=== PATIENT | female | born 1965 | race American Indian/Alaskan Native ===

== ENCOUNTER 2025-05-16 13:44 | Outpatient (CLI) | payer BC, SELFPAY ==
--- OUTSIDE RECORDS SUMMARY | 2025-05-16 13:56 | XMS_ITS ---
Author Organization [facility] [place] ([address]) Address [address] [place] [address] Care Team Providers Care Rib Knitter Name Role Phone Elizabeth Burns Primary Care Provider Za Brewster Unavailable [phone] REASON FOR VISIT Asthma follow-up Encounters Encounter Location Date Provider Diagnosis [facility] [address] [place] [address] 04/06/2024 Za Farley Plan Of Treatment No Information Progress Notes * Tiara TELLEShDOB:[birth year] (59 yo F)Acc No.[id number]:04/06/2024 Asthma F/U Patient: Ashley LUIS Provider: Dominick Farley MD :1965 A ge:58 Y S ex:Female Date:04/06/2024 Address:[address] [facility] Pcp:Elizabeth Burns Subjective: * Chief Complaints: * 1 . Asthma follow-up. * Medical History: Objective: * Vitals: Assessment: Plan: * Treatment: * Billing Information: * Visit Code: * Procedure Codes: * Electronic signature of Krystyna Farley MD on 05/16/2025 at 01:56 PM CDT Sign off status: Pending * Provider: Dominick Farley MD Date: 0 04/06/2024 Generated for Venancio ruby/Shlomo/Rajanismitting on: 0 05/16/2025 01:56 PM CDT
--- OUTSIDE RECORDS SUMMARY | 2025-05-16 13:56 | XMS_ITS | Patient Health Record ---
Author Organization [facility] la[facility] [place] Address [address] [place] [address] Care Team Providers Care Slabbing Machine Operator Name Role Phone Elbert Ryan Primary Care Provider SHIVANI Mullen JR Unavailable [phone] Allergies Allergen (clinical drug ingredient) Drug/Non Drug Allergy documented on EMR Reaction Allergy Type Onset Date Status celecoxib CeleBREX Unknown Drug Allergy Active cyclobenzaprine Cyclobenzaprine HCl Unknown Drug Allergy Active gabapentin Gabapentin Unknown Drug Allergy Activ e methocarbamol Methocarbamol Unknown Drug Allergy Active naproxen Naproxen Unknown Drug Allergy Active tramadol Tramadol Unknown Drug Allergy Active Reason For Referral No Information Medications Medication SIG (Take, Route, Frequency, Duration) Notes Start Date End Date Status Omeprazole 40 MG 1 capsule 30 minutes before morning meal Orally Once a day Active Meloxicam 15 MG 1 tablet Orally Once a day Active Levothyroxine Sodium 88 MCG 1 tablet in the morning on an empty stomach Orally Once a day Active Vitamin A 2400 MCG (8000 UT) 1 capsule w ith food or milk Orally Once a day Active Vitamin D3 8913590 UNIT/GM as directed Active Vitamin C 500 MG as directed Orally Active DULoxetine HCl 60 MG 1 capsule Orally Tw ice a day Active oxyBUTYnin Chloride ER 5 MG 1 tablet Ora lly Once a day Active metFORMIN HCl 500 MG 1 tablet with a amado l Orally bid Active Social History Tobacco Use: Social History Observation Description Date Details (start date - stop date) Unknown Tobacco Use/Smoking Question Answer Notes Tobacco use: Uses tobacco in other forms Section Notes: soapp score 6 soapp score 6 soapp score 6 soapp score 6 Problems Problem Type SNOMED Code ICD Code Onset Dates Problem Status W/U Status Risk Notes Problem Solitary sacroiliitis (201020630) Sacroiliitis, not elsewhere classified (M46.1) Active confirmed Problem Lumbosacral spondylosis without myelopathy (26777214) Spondylosis without myelopathy or radiculopathy, lumbar region (M47.816) Active confirmed Problem Cervical spondylosis without myelopathy (884518976) Other spondylosis, cervical region (M47.892) Active confirmed Problem Lumbar radiculopathy (786218750) Radiculopathy, lumbar region (M54.16) Active confirmed Problem Enthesopathy of hip region (31651486) Trochanteric bursitis, unspecified hip (M70.60) Active confirmed Problem 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 (884856620) MCC (current) use of opiate analgesic (Z79.891) Active confirmed Plan Of Treatment No Information Insurance Providers Payer Name Payer Address Payer Phone Subscriber Number Group Number Insured Name Patient Relationship to Insured Coverage Start Date Coverage End Date PEEWEE Mcclain [address] [place] [address] [id number] Tiara Tidwellh Self - patient is the insured 2021 Medical (General) History Medical History History ICD Code Arthritis diabetes high cholesterol migraine headaches thyroid problems Surgical History Surgery Date(Month/Year) section hysterectomy 1996 laparoscopy right knee 2015 right knee feathered acl 2015 Hospitalization History Reason Date(Month/Year) none recent
--- OUTSIDE RECORDS SUMMARY | 2025-05-16 13:56 | XMS_ITS ---
Author Organization [facility] [place] ([address]) Address [address] [place] [address] Care Team Providers Care Community Pharmacist Name Role Phone Elizabeth Burns Primary Care Provider Za Brewster Unavailable [phone] REASON FOR VISIT Asthma follow-up Encounters Encounter Location Date Provider Diagnosis [facility] [address] [place] [address] 04/27/2024 Za Farley Plan Of Treatment No Information Progress Notes * Tiara TELLEShDOB:[birth year] (59 yo F)Acc No.[id number]:04/27/2024 Asthma F/U Patient: Ashley LUIS Provider: Dominick Farley MD :1965 A ge:58 Y S ex:Female Date:04/27/2024 Address:[address] [facility] Pcp:Elizabeth Burns Subjective: * Chief Complaints: * 1 . Asthma follow-up. * Medical History: Objective: * Vitals: Assessment: Plan: * Treatment: * Billing Information: * Visit Code: * Procedure Codes: * Electronic signature of Krytsyna Farley MD on 05/16/2025 at 01:56 PM CDT Sign off status: Pending * Provider: Dominick Farley MD Date: 0 04/27/2024 Generated for Venancio ruby/Shlomo/Rajanismitting on: 0 05/16/2025 01:56 PM CDT
--- OUTSIDE RECORDS SUMMARY | 2025-05-16 13:56 | XMS_ITS ---
Author Organization [facility] [place] ([address]) Address [address] [place] [address] Care Team Providers Care Housing Officer Name Role Phone Elizabeth Burns Primary Care Provider Unavaila araceli Cabaandrea Za Unavailable [phone] ZZ-Migration, Provider Unavailable Unavailab le Allergies Allergen (clinical drug ingredient) Drug/Non Drug Allergy documented on EMR Reaction Allergy Type Onset Date Status Steroids STEROIDS (uncoded) facial flushi ng and swelling Allergy Active aspirin Aspirin lip swelling Drug Allergy Acti ve oxycodone oxyCODONE migraines Drug Allergy Active REASON FOR VISIT [facility] Conversion Encounter Medications Medication SIG (Take, Route, [...] Active Encounters Encounter Location Date Provider Diagnosis [address] [address] 04/16/2024 Provider Brian Allergic rhinitis due to [...] * Tiara TELLEShDOB:[birth year] (59 yo F)Acc No.[id number]:04/16/2024 Patient: Ashley LUIS Provider: Janessa Tipton :1965 A ge:58 Y S ex:Female Date:04/16/2024 Address:[address] [place] [address], [id number] Pcp:Elizabeth Burns Subjective: * Chief Complaints: * [...] * Electronic signature of Lilliam JHAVERI-Migration on 05/16/2025 at 01:55 PM CDT Sign off status: Pending * Provider: Janessa rapp Migration Date: 04/16/2024 Generated for Venancio ruby/Shlomo/Adelita on: 05/16/2025 01:55 PM CDT
--- NOTE | 2025-05-16 15:03 | ECG_ITS ---
Test Date: 2025-05-16 15:16:28 Measurements Intervals [place] Rate: 76 P: 36 WA: 128 QRS: -19 QRSD: 120 T: -9 QT: 404 QTc: 455 Interpretive Statements SINUS RHYTHM RIGHT BUNDLE BRANCH BLOCK [120+ ms QRS DURATION, UPRIGHT V1, 40+ ms S IN I/aVL/V4/V5/V6] No previous ECG available for comparison Electronically Signed On 05-17-2025 12:33:28 CDT by Americo Daniels M.D.
[2025-05-16 15:33] LABS: Hematocrit 35.1 % (37.0-47.0); Hemoglobin 11.3 g/dL (12.0-15.0); Mean Corpuscular HGB Conc 32.2 g/dl (32-36); Mean Corpuscular Hemoglobin 28.0 pg (26-34); Mean Corpuscular Volume 86.9 fl (80-100); Platelet Count Result 213 k/mm3 (150-375); Red Blood Count 4.04 M/mm3 (4.2-5.4); White Blood Count 4.9 K/mm3 (4.5-10.0)
[2025-05-16 15:39] LABS: Add Urine Microscopic? YES; Appearance Urine Clear (Clear); Glucose Urine UA Negative (Negative); Leukocyte Esterase Ur Trace LEU/UL (Negative); Nitrate Urine Negative (Negative); Non Pathogenic Casts 0-2; Specific Grav Ur 1.012 (1.001-1.035)
[2025-05-16 15:44] LABS: INR 1.0; Prothrombin Time 13.0 Seconds (11.1-14.7)
[2025-05-16 15:45] LABS: Partial Thromboplastin Time 27.7 Seconds (22.3-36.8)
[2025-05-16 15:49] LABS: Hemoglobin A1C 6.0 % (<5.7)
[2025-05-16 15:56] LABS: Anion Gap 7 mmol/L (4-12); Blood Urea Nitrogen 11 mg/dL (7-17); Calcium 9.7 mg/dL (8.4-10.2); Carbon Dioxide 30 mmol/L (22-30); Chloride 104 mmol/L (98-107); Estimated Glomerular Filt Rate > 60; Glucose 100 mg/dL (65-110); Potassium 4.0 mmol/L (3.4-5.0); Sodium 141 mmol/L (137-145)
== END 2025-05-16 13:45 | disposition home or self-care (01) ==
LOC: ANHSURGERY 13:51
PROVIDERS: PCP Registered Nurse; Visit Provider Neurological Surgery
DX: Z01.818 Encounter for other preprocedural examination (principal); I45.10 Unspecified right bundle-branch block; M54.16 Radiculopathy, lumbar region; M43.16 Spondylolisthesis, lumbar region; E78.5 Hyperlipidemia, unspecified
CPT/HCPCS: 36415; 80048; 81001; 83036; 85027; 85610; 85730; 86850; 86870; 86880; 86900; 86901; 86902; 86905; 86971; 93005

== ENCOUNTER 2025-05-24 13:26 | Observation (INO) | payer BC, SELFPAY ==
[2025-05-16 14:31] VITALS: BP 135/84; PULSE 78; RESP 16; TEMP 36.6; O2SAT 98; BMI 36.3
--- NOTE | 2025-05-16 14:53 | PC.NURSE ---
Report to the Outpatient Waiting Room, entrance under the green pavilion located off [facility], at time _0900am on date ___05/23/25____. Planned Procedure Time: __1100am .? Time changes happen often and if your time is changed the preop area will call you the afternoon before. - You and your visitor will be asked to self-screen and do not enter if you have any COVID symptoms. Please call surgeon if you need to reschedule. - A mask is optional within the hospital at this time. Patients may have clear liquids (water, carbonated beverages, clear teas, apple juice) until 3 hours prior to surgery with a maximum of 20 ounces. - No food from midnight until time of surgery and no smoking, or chewing tobacco (or any form of nicotine). No chewing gum, candy or mints. (0800am) Take only the following medications with a SIP of water on the morning of surgery: ___Pregablin, Setraline, and Savella, Tylenol if needed DO NOT STOP ANY OF YOUR OTHER PRESCRIPTION MEDICATIONS PRIOR TO SURGERY EXCEPT THE FOLLOWING Hold all vitamins and supplements for 3 days per anesthesiologist.Date for last dose is 05/19/25 Medications to discontinue per physician HOLD NSAIDS/Meloxicam for [address] Vaughn Date to take last dose 05/16/25 Please no make-up, nail kyrgyz, hairspray, perfume, deodorant, or body powder the day of surgery.? No jewelry (including any body piercings) or valuables the day of surgery, leave them at home.? Please take a shower or bath the night before, or the morning of, surgery with an antibacterial soap.?( GOLD DIAL) Wear comfortable, loose fitting clothing.? Overnight bag, Robe, toiletries, Phone, phone conveyor line battery charger, Tennis shoes - Jewelry must be removed prior to entering the operating room.? Rings and piercings that are not removed may be cut off. - The hospital will not accept responsibility for valuables.? - Please leave all valuables, including medications, at home the day of surgery. If you are going home after surgery, a licensed driver guard must drive you home.? - NO public transportation without another adult if you receive anesthesia. - We recommend that an adult stay with you for 24 hours following discharge. - We also recommend that you do not drive, make important decision, drink alcoholic beverages, or take any drugs that were not prescribed by your health care provider for at least 24 hours after your discharge time. Follow any additional instructions given to you from your surgeon. Telephone instructions given to __Patient and asked if any additional questions and then verbalized understanding. Patient advised to call surgeon office or pre surgery nurse liaison [phone] if any additional questions.
[2025-05-23] VITALS (11 sets, daily range): BP systolic 106–144; BP diastolic 61–84; PULSE 70–90; RESP 12–20; TEMP 36.6–36.9; O2SAT 93–100
--- OUTSIDE RECORDS SUMMARY | 2025-05-23 00:30 | XMS_ITS | Encounter Summary ---
Author Organization [facility] Address [facility] [place] [address] Care Team Providers Care Scoop Operator Name Role Phone Elizabeth Burns [facility] Primary Care Provider [phone] Encounter Details Date Type Department Care Team (Late st Contact Info) Description 04/09/2025 Dynamic Signalt Message Enc [facility] [address] [place] [address] Elizabeth Burns [facility] [address] [place], [place] [id number] Pain med Social History Tobacco Use Types Packs/Day Years Used Date Smoking Tobacco: Some Days Electronic Cigarettes Smokeless Tobacco: Former Alcohol Use Standard Drinks/Week Comments Yes 0 (1 standard drink = 0.6 oz pur e alcohol) AUDIT-C Answer Date Recorded Frequency of Alcohol Consumption Monthly or less 05/24/2019 Average Number of Drinks Not on file 019 Frequency of Binge Drinking Not on file 05/03 PHQ-2 Answer Date Recorded Patient Health Questionnaire-2 Score 0 12/05/2024 Comments No Sex and Gender Information Value Date Recorded Sex Assigned at Female 12/05/2024 10:47 AM SOOT BLOWER Legal Sex Female 10:22 PM SOOT BLOWER Gender Identity Female 03/14/2025 3:45 PM CDT Sexual Orientation Not on file 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 of this encounter Plan of Treatment Upcoming Encounters Date Type Department Care Team (Late st Contact Info) Description 06/20/2025 3:20 PM CDT Allied Health/Nurse Visit [address] [place] [address] Elizabeth Burns FNP [address] [place] [address] 07/19/2025 10:40 AM CDT Office Visit [facility] [address] [phone] Alisia Rascon, CANDIS [address] [address] 07/21/2025 2:40 PM CDT Office Visit [address] [place] [address] Elizabeth Burns FNP [address] [facility] [place] [address] documented as of this encounter Visit Diagnoses Not on filedocumented in this encounter Care Teams Scoop Operator Relationship Specialty Start Date End Date Elizabeth Burns FNP [address] [place] [address] [place], [place] [id number] PCP - General NURSE PRACTITIONER 11/03/18 documented as of this encounter
--- OUTSIDE RECORDS SUMMARY | 2025-05-23 00:30 | XMS_ITS ---
Author Organization [facility] [place] ([address]) Address [address] [place] [address] Care Team Providers Care Paper Folding Machine Operator Name Role Phone Elizabeth Burns Primary Care Provider Unavaila araceli [place] Unavailable [phone] ZZ-Migration, Provider Unavailable Unavailab le Allergies Allergen (clinical drug ingredient) Drug/Non Drug Allergy documented on EMR Reaction Allergy Type Onset Date Status Steroids STEROIDS (uncoded) facial flushi ng and swelling Allergy Active aspirin Aspirin lip swelling Drug Allergy Acti ve oxycodone oxyCODONE migraines Drug Allergy Active REASON FOR VISIT [facility] Conversion Encounter Medications Medication SIG (Take, [...] Active Encounters Encounter Location Date Provider Diagnosis [address] [address] 04/16/2024 Provider Brian Allergic rhinitis due to [...] * Tiara TELLEShDOB:[birth year] (59 yo F)Acc No.[id number]:04/16/2024 Patient: Ashley LUIS Provider: Janessa Tipton :1965 A ge:58 Y S ex:Female Date:04/16/2024 Address:[address] [place] [address], [id number] Pcp:Elizabeth Burns Subjective: * Chief Complaints: * [...] * Electronic signature of Lilliam JHAVERI-Migration on 05/23/2025 at 12:30 AM CDT Sign off status: Pending * Provider: Janessa rapp Migration Date: 04/16/2024 Generated for Venancio ruby/Shlomo/Adelita on: 05/23/2025 12:30 AM CDT
--- OUTSIDE RECORDS SUMMARY | 2025-05-23 00:30 | XMS_ITS ---
Author Organization [facility] [place] ([address]) Address [address] [place] [address] Care Team Providers Care Regional Liaison Name Role Phone Elizabeth Burns Primary Care Provider Za Brewster Unavailable [phone] REASON FOR VISIT Asthma follow-up Encounters Encounter Location Date Provider Diagnosis [facility] [address] [place] [address] 04/27/2024 Za Farley Plan Of Treatment No Information Progress Notes * Tiara TELLEShDOB:[birth year] (59 yo F)Acc No.[id number]:04/27/2024 Asthma F/U Patient: Ashley LUIS Provider: Dominick Farley MD :1965 A ge:58 Y S ex:Female Date:04/27/2024 Address[address] [facility] Pcp:Elizabeth Burns Subjective: * Chief Complaints: * 1 . Asthma follow-up. * Medical History: Objective: * Vitals: Assessment: Plan: * Treatment: * Billing Information: * Visit Code: * Procedure Codes: * Electronic signature of Krystyna Farley MD on 05/23/2025 at 12:30 AM CDT Sign off status: Pending * Provider: Dominick Farley MD Date: 0 04/27/2024 Generated for Venancio ruby/Shlomo/Rajanismitting on: 0 05/23/2025 12:30 AM CDT
--- OUTSIDE RECORDS SUMMARY | 2025-05-23 00:30 | XMS_ITS | Patient Health Record ---
Author Organization [facility] Address [address] [place] [address] Care Team Providers Care Smt Technician Name Role Phone Elbert Ryan Primary Care Provider SHIVANI Mullen JR Unavailable Allergies Allergen (clinical drug ingredient) Drug/Non Drug [...] Orally Once a day Active Vitamin D3 9109484 UNIT/GM as directed Active Vitamin C 500 [...] W/U Status Risk Notes Problem Solitary sacroiliitis (785287344) Sacroiliitis, not elsewhere classified (M46.1) Active confirmed Problem Lumbosacral spondylosis without myelopathy (07177597) Spondylosis without myelopathy or radiculopathy, lumbar region (M47.816) Active confirmed Problem Cervical spondylosis without myelopathy (280589836) Other spondylosis, cervical region (M47.892) Active confirmed Problem Lumbar radiculopathy (169844467) Radiculopathy, lumbar region (M54.16) Active confirmed Problem Enthesopathy of hip region (82183137) Trochanteric bursitis, unspecified hip (M70.60) Active confirmed Problem 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 (337138520) retirement (current) use of opiate analgesic (Z79.891) Active confirmed Plan Of Treatment No Information Insurance Providers Payer Name Payer Address Payer Phone Subscriber Number Group Number Insured Name Patient Relationship to Insured Coverage Start Date Coverage End Date PEEWEE Mcclain [address] [place] [address] [id number] Tiara Tidwellh Self - patient is the insured 2021 Medical (General) History Medical History History ICD Code Arthritis diabetes high cholesterol migraine headaches thyroid problems Surgical History Surgery Date(Month/Year) section hysterectomy 1996 laparoscopy right knee 2015 right knee feathered acl 2015 Hospitalization History Reason Date(Month/Year) none recent
--- OUTSIDE RECORDS SUMMARY | 2025-05-23 00:30 | XMS_ITS | Encounter Summary ---
Author Organization [facility] Address [address] [place] [address] Care Team Providers Care Nodulizer Name Role Phone Elizabeth Burns [facility] Primary Care Provider [phone] Encounter Details Date Type Department Care Team (Latest Contact Info) Description 11/18/2024 [employer] Message [facility] [place] [id number] 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 of this encounter Plan of Treatment Upcoming Encounters Date Type Department Care Team (Late st Contact Info) Description 06/20/2025 3:20 PM CDT Allied Health/Nurse Visit [address] [place] [address] Elizabeth Burns FNP [address] [facility] [place] [address] 07/19/2025 10:40 AM CDT Office Visit [facility] [place] [address] [place] [phone] Alisia Rascon, CANDIS [address] [address] 07/21/2025 2:40 PM CDT Office Visit [address] [place] [address] Elizabeth Burns FNP [address] [facility] [place] [address] documented as of this encounter Visit Diagnoses Not on filedocumented in this encounter Additional Health Concerns Infection Onset Date Last Indicated Resolved Time COVID-19 Rule Out 12/05/2024 12/05/2024 12/05/2024 11:14 AM SOCK EXAMINER Influenza - Seasonal 12/05/2024 12/05/2024 025 12:32 AM SOCK EXAMINER documented as of this encounter Care Teams Nodulizer Relationship Specialty Start Date End Date Elizabeth Burns FNP [address] [facility] [place] [address] PCP - General NURSE PRACTITIONER 11/03/18 documented as of this encounter
--- OUTSIDE RECORDS SUMMARY | 2025-05-23 00:31 | XMS_ITS ---
Author Organization [facility] [place] ([address]) Address [address] [place] [address] Care Team Providers Care Brazing Machine Operator Name Role Phone Elizabeth Burns Primary Care Provider Za Brewster Unavailable [phone] REASON FOR VISIT Asthma follow-up Encounters Encounter Location Date Provider Diagnosis [facility] [address] [place] [address] 04/06/2024 Za Farley Plan Of Treatment No Information Progress Notes * Tiara TELLEShDOB:[birth year] (59 yo F)Acc No.[id number]:04/06/2024 Asthma F/U Patient: Ashley LUIS Provider: Dominick Farley MD :1965 A ge:58 Y S ex:Female Date:04/06/2024 Address:[address] [facility] Pcp:Elizabeth Burns Subjective: * Chief Complaints: * 1 . Asthma follow-up. * Medical History: Objective: * Vitals: Assessment: Plan: * Treatment: * Billing Information: * Visit Code: * Procedure Codes: * Electronic signature of Krystyna Farley MD on 05/23/2025 at 12:31 AM CDT Sign off status: Pending * Provider: Dominick Farley MD Date: 0 04/06/2024 Generated for Venancio ruby/Shlomo/Rajanismitting on: 0 05/23/2025 12:31 AM CDT
--- OUTSIDE RECORDS SUMMARY | 2025-05-23 00:31 | XMS_ITS | Patient Health Record ---
Author Organization [facility] [place] ([address]) Address [address] [place] [address] Care Team Providers Care Supervisor Net Making Name Role Phone Elizabeth Burns Primary Care Provider Za Brewster Unavailable [phone] Allergies Allergen (clinical drug ingredient) Drug/Non Drug Allergy documented on EMR Reaction Allergy Type Onset Date Status Steroids STEROIDS (uncoded) facial flushi ng and swelling Allergy Active aspirin Aspirin lip swelling Drug Allergy Acti ve oxycodone oxyCODONE migraines Drug Allergy Active Reason For Referral No Information Medications Medication SIG (Take, Route, Frequency, Duration) Notes Start Date End Date Status MELOXICAM 15 mg 1 tab(s) orally once a day Active Atorvastatin Calcium 20 MG 1 tab(s) orally once a day Active SUMAtriptan Succinate 50 MG 1 tab(s) orally once Active Omeprazole 40 MG 1 cap(s) orally once a day Active OXYBUTYNIN 5 mg 1 tab(s) orally 3 times a day Active Meloxicam 15 MG 1 tab(s) orally once a day Active MILNACIPRAN 25 MG 1 TAB(S) ORALLY 2 TIMES A DAY *Please review for potential replacement for e-prescription and drug interaction check* Active lamoTRIgine 25 MG 1 tab(s) orally 2 times a day Active Levothyroxine Sodium 137 MCG 1 tab(s) orally once a day Active oxyBUTYnin Chloride 5 MG 1 tab(s) orally 3 times a day Active LEVOCETIRIZINE DIHYDROCHLORIDE 5 mg 1 tab(s) orally once a day (in the evening); Duration: 30 days Active PROAIR HFA 90 MCG/INH 2 PUFF(S) INHALED EVERY 6 HOURS *Please review for potential replacement for e-prescription and drug interaction check* Active ARNUITY ELLIPTA furoate 100 mcg 1 puff(s) inhaled every 24 hours; Duration: 30 days Active AZELASTINE HYDROCHLORIDE NASAL 137 mcg/inh 2 spray(s) intranasally 2 times a day; Duration: 30 days Active LORATADINE 10 mg 1 tab(s) orally once a day Active Loratadine 10 MG 1 tab(s) orally once a day Active METFORMIN 500 mg 1 tab(s) orally 2 times a day Active LAMOTRIGINE 25 mg 1 tab(s) orally 2 times a day Active ATORVASTATIN 20 mg 1 tab(s) orally once a day Active LEVOTHYROXINE 137 mcg (0.137 mg) 1 tab(s) orally once a day Active OMEPRAZOLE 40 mg 1 cap(s) orally once a day Active SUMATRIPTAN 50 mg 1 tab(s) orally once Active Levocetirizine Dihydrochloride 5 MG 1 tab(s) orally once a day (in the evening); Duration: 30 days Active Azelastine HCl 137 MCG/SPRAY 2 spray(s) intranasally 2 times a day; Duration: 30 days Active Arnuity Ellipta 100 MCG/ACT 1 puff(s) inhaled every 24 hours; Duration: 30 days Active metFORMIN HCl 500 MG 1 tab(s) orally 2 times a day Active Social History Tobacco Use: Social History Observation Description Date Details (start date - stop date) Never Smoker NA - NA Smoking Smart Form: Question Answer Notes Are you a: never smoker Problems Problem Type SNOMED Code ICD Code Onset Dates Problem Status W/U Status Risk Notes Problem Chronic allergic conjunctivitis (57641493) Other chronic allergic conjunctivitis (H10.45) Active confirmed Problem Allergic rhinitis caused by pollen (disorder) (91121132) Allergic rhinitis due to pollen (J30.1) Active confirmed Problem Allergic rhinitis (70945849) Other allergic rhinitis (J30.89) Active confirmed Problem Chronic rhinitis (95092599) Chronic rhinitis (J31.0) Active confirmed Problem Allergic rhinitis caused by animal hair and dander (487869394346994) Allergic rhinitis due to animal (cat) (dog) hair and dander (J30.81) Active confirmed Plan Of Treatment No Information Insurance Providers Payer Name Payer Address Payer Phone Subscriber Number Group Number Insured Name Patient Relationship to Insured Coverage Start Date Coverage End Date [employer] [place] [address] [place] [address] [id number] Ashley Tidwell Self - patient is the insured Medical (General) History Medical History History ICD Code Fibromyalgia Anxiety Hyperthyroidism Neuropathy Surgical History Surgery Date(Month/Year) Endoscopy
--- OUTSIDE RECORDS SUMMARY | 2025-05-23 00:31 | XMS_ITS | Clinical Summary ---
Author Organization [facility] Address [facility] [place] [address] Care Team Providers Care Needle Punch Machine Operator Helper Name Role Phone Elizabeth Loya [facility] Primary Care Provider [phone] Allergies Active Allergy Reactions Criticality Noted Date Comments Aspirin Swelling 08/30/2019 Lips swelling Celecoxib Unknown 04/20/2025 Citrullus Vulgaris Hives 01/19/2018 Cyclobenzaprine Headache 04/20/2025 Gabapentin Dizziness 04/20/2025 Disoriented. Methocarbamol Unknown 04/20/2025 Methylprednisolone Swelling 01/06/2020 facial swelling and headache. Naproxen Rash Low 04/20/2025 Oxycodone Headache 01/08/2024 Pork-Derived Products Headache 08/30/2019 Worsens migraines Steroids Redness 01/08/2024 ORAL ONLY Strawberries Hives 01/19/2018 Sulfa Antibiotics Rash Low 01/19/2018 Tramadol Dizziness 04/20/2025 Disoriented. Medications ARNUITY ELLIPTA 100 MCG/ACT AEROSOL POWDER, BREATH ACTIVATED INHALE 1 PUFF BY MOUTH EVERY 24 HOURS Active azelastine (ASTELIN) 0.1 % nasal spray every 12 (twelve) hours. 11/25/19 24 Active omeprazole (PRILOSEC) 40 MG capsuleIndicatio ns:Dyspepsia Take 1 capsule (40 mg total) by mouth daily. 90 capsule 3 06/06/20 24 Active Ascorbic Acid 500 MG Cap as directed Orally Active Cholecalciferol (VITAMIN D3) [id number] UNIT/GM Liquid see administration instructions. Active triamcinolone (KENALOG) 0.5 % ointmentIndicati ons:Skin irritation Apply topically daily as needed. 15 g 01/18/20 25 Active pregabalin (LYRICA) 100 MG capsuleIndicatio ns:Small fiber neuropathy Take 1 capsule (100 mg total) by mouth 3 (three) times daily. 90 capsule 5 02/28/20 25 Active metFORMIN (GLUCOPHAGE) 500 MG tabletIndication s:Prediabetes Take 1 tablet (500 mg total) by mouth 2 (two) times daily with meals. 180 tablet 1 03/06/20 25 Active sertraline (ZOLOFT) 50 MG tabletIndication s:Treatment-resi stant depression Take 1 tablet (50 mg total) by mouth daily. 90 tablet 1 03/14/20 25 Active Milnacipran HCl (SAVELLA) 100 MG TabIndications:F ibromyalgia Take 1 tablet by mouth 2 (two) times daily. 180 tablet 1 03/16/20 25 Active meloxicam (MOBIC) 15 MG tabletIndication s:Multiple joint pain Take 1 tablet by mouth once daily 90 tablet 04/17/20 25 Active levothyroxine (SYNTHROID) 112 MCG tabletIndication s:Hypothyroidism , unspecified type Take 1 tablet (112 mcg total) by mouth every morning. 90 tablet 1 04/20/20 25 Active atorvastatin (LIPITOR) 20 MG tabletIndication s:Elevated lipoprotein(a) Take 1 tablet (20 mg total) by mouth nightly at bedtime. 90 tablet 1 04/20/20 25 Active levocetirizine (XYZAL) 5 MG tabletIndication s:Non-seasonal allergic rhinitis due to pollen Take 1 tablet (5 mg total) by mouth daily. 90 tablet 04/20/20 25 Active oxybutynin XL (DITROPAN-XL) 10 MG 24 hr tabletIndication s:OAB (overactive bladder) Take 1 tablet (10 mg total) by mouth daily. 90 tablet 1 04/20/20 25 Active SUMAtriptan (IMITREX) 50 MG tabletIndication s:Recurrent headache 1 tablet at headache onset, may repeat dose in 2 hours for persistent headache 30 tablet 5 04/20/20 25 Active albuterol sulfate HFA (PROAIR HFA) 108 (90 Base) MCG/ACT inhalerIndicatio ns:Uncomplicated asthma, unspecified asthma severity, unspecified whether persistent (HHS/HCC) Inhale 2 puffs into the lungs every 4 (four) hours as needed for Wheezing or Shortness of breath. 18 g 1 04/20/20 25 Active lubiprostone (AMITIZA) 24 MCG capsuleIndicatio ns:Irritable bowel syndrome with constipation Take 1 capsule (24 mcg total) by mouth 2 (two) times daily with meals. 60 capsule 3 05/17/20 25 025 Active Plecanatide (TRULANCE) 3 MG TabIndications:I rritable bowel syndrome with constipation Take 3 mg by mouth daily. 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 Esophageal dysphagia 10/15/2023 Class 2 severe obesity due t o excess calories with serious comorbidity and body mass index (BMI) of 37.0 to 37.9 in adult 02/04/2023 Engages in nicotine containing substance vaping 12/13/2019 Lumbar radiculopathy 05/24/2019 Controlled substance agreement signed 03/07/2019 Elevated lipoprotein(a) 03/07/2019 GERD (gastroesophageal reflux disease) 9 Vaginal dryness, menopausal 11/12/2018 Cervical herniated disc 01/19/2018 Generalized anxiety disorder 01/19/2018 Arthritis 01/19/2018 Atypical migraine 01/19/2018 Chronic back pain 01/19/2018 Fibromyalgia 01/19/2018 History of migraine headaches 01/19/2018 Overview (11/11/2018): Date Onset: 01/19/2018 Vitamin B12 deficiency 01/19/2018 Vitamin D deficiency 01/19/2018 Lichen sclerosus of female genitalia Resolved Problems Problem Noted Date Diagnosed Date Resolved Date Trochanteric bursitis of left hip 01/02/2020 10/03/2023 Hypothyroidism, unspecified type 11/12/2018 12/27/2018 Family history of lupus erythematosus 11/12/2018 03/07/2019 Obesity (BMI 30-39.9) 11/12/20182023 Cigarette nicotine dependence 01/19/2018 03/31/2024 Overview (11/11/2018): Date Onset: 01/19/2018 Encounters Date Type Department Care Team Description 05/17/2025 11:20 AM CDT Office Visit [facility] [address] [phone] Elizabeth Loya FNP Schaefer, Jennifer, NP Follow Up 05/17/2025 MyChart Message Enc [address] [place] [address] Elizabeth Loya FNP Surgery 05/17/2025 Travel 04/27/[address] [place] [phone] Elizabeth Loya FNP Mammography Order 04/27/2025 MyChart Message Enc [address] [place], [place] [phone] Elizabeth Loya FNP Need a referral 04/20/2025 10:00 AM CDT Office Visit [address] [place] [address] Elizabeth Loya FNP Follow Up (Patient is here for a 1 month follow up. /Wants to discuss some things. ) 04/20/2025 Scan [facility] SRV[facility] Scanned, Doc [facility] 04/20/2025 Travel 04/09/2025 MyChart Message Enc [address] [place] [phone] Elizabeth Loya FNP Pain med 03/24/[address] [place] [phone] Elizabeth Loya FNP Prior Authorization (PA request Trulance 30 mg tab) 03/19/2025 MyChart Message Enc [facility] [address] [place] [address] Elizabeth Loya FNP Medication 03/14/2025 3:40 PM CDT Office Visit [address] [place] [address] Elizabeth Loya FNP Medication Management (IBS acting up//Right ear pain//Joint pain//Needing some shots and med refills) 03/14/2025 Travel 03/14/2025 Results Follow-Up [address] [place] [address] Elizabeth Loya FNP THYROID STIM HORMONE TSH 03/13/2025 6:58 AM CDT - 03/13/2025 11:59 PM CDT Hospital Encounter [facility] [address] [place] [address] Elizabeth Loya FNP Discharge Disposition: Home or Self Care (Routine Discharge) 03/13/2025 Travel 03/06/2025 Scan [facility] INFO SRVCS Scanned, Doc [facility] 02/23/2025 3:39 PM CDT - 02/23/2025 11:59 PM CDT Hospital Encounter [facility] [id number] [place] [address] Fiona Ware, CANDIS Discharge Disposition: Home or Self Care (Routine Discharge) 02/23/2025 Travel from Last 3 Months Immunizations Immunization Administration Dates Next Due Fluzone (IIV3, Trivalent, 0. 5 ML Prefilled Syringe) 08/02/2024 Fluzone 6 Months+ Quad (0.5 mL Prefilled Syringe) 07/20/2023 Hepatitis B 01/03/1997,07/21/1996,06/22/1996 Influenza (Generic) 11/25/2017,10/08/2017 Influenza Adult (Generic) 09/28/2019 MMR (Generic) 06/13/2014 Shingrix 04/20/2025 Td (Tenivac) preservative free 12/23/1995 Tdap (Adacel) 03/14/2025 Tdap (Generic) 05/04/2014 Family History Medical History Relation Comments Arthritis Father Diabetes Father Heart Disease Father Heart Disease Mother Lupus Mother Breast Cancer Neg Hx Relation Status Comments Brother Alive Father Mother Social History Tobacco Use Types Packs/Day Years Used Date Smoking Tobacco: Some Days Electronic Cigarettes Smokeless Tobacco: Former Chew Tobacco Cessation:Ready to Q uit: Not Asked; Counseling Given: Not Answered Alcohol Use Standard Drinks/Week Comments Not Currently 0 (1 standard drink = 0.6 oz pur e alcohol) AUDIT-C Answer Date Recorded Frequency of Alcohol Consumption Monthly or less 05/24/2019 Average Number of Drinks Not on file 019 Frequency of Binge Drinking Not on file 05/03 PHQ-2 Answer Date Recorded Patient Health Questionnaire-2 Score 0 05/17/2025 Comments No Sex and Gender Information Value Date Recorded Sex Assigned at Female 12/05/2024 10:47 AM CAR DUMPER OPERATOR Legal Sex Female 10:22 PM CAR DUMPER OPERATOR Gender Identity Female 03/14/2025 3:45 PM CDT Sexual Orientation Not on file 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 Last Filed Vital Signs Vital Sign Reading Time Taken Comments Blood Pressure 131/88 05/17/2025 11:05 AM CDT Pulse 88 05/17/2025 11:05 AM CDT Temperature 36.6 C (97.8 F) 05/17/2025 11:05 AM CDT Respiratory Rate 20 05/17/2025 11:05 AM CDT Oxygen Saturation 98% 05/17/2025 11:05 AM CDT Inhaled Oxygen Concentration - - Weight 84.4 kg (186 lb) 05/17/2025 11:05 AM CDT Height 152.4 cm (5') 05/17/2025 11:05 AM CDT Body Mass Index 36.33 05/17/2025 11:05 AM CDT Plan of Treatment Upcoming Encounters Date Type Department Care Team (Late st Contact Info) Description 06/20/2025 3:20 PM CDT Allied Health/Nurse Visit [address] [place] [address] Elziabeth Loya [facility] [address] [place] [address] 07/19/2025 10:40 AM CDT Office Visit [facility] G[facility] [place] [address] [place] [phone] Alisia Rascon, CANDIS [address] [address] 07/21/2025 2:40 PM CDT Office Visit [facility] [address] [place] [phone] Elizabeth Loya [facility] [address] [facility] [place] [address] Health Maintenance Due Date Last Done Comments Annual Physical 1968 Pneumococcal Vaccine: 50+ Years (1 of 2 - PCV) 1983 COVID-19 Vaccine (1 - 2023-2 5 season) 2024 RSV Immunization or 60+ Years (1 - Risk 60-74 years 1-dose series) 2024 Zoster Vaccines (2 of 2) 06/15/2025 04/20/2025 Colorectal Cancer Screening FIT-DNA (3 Years) 04/02/2026 04/02/2023, 04/02/2023 Mammogram Screening 05/27/2026 05/27/2024, 03/29/2019 DTaP, Tdap and Td Vaccines ( 3 - Td or Tdap) 03/14/2035 03/14/2025, 05/04/2014, 12/23/1995 Hepatitis C Completed 01/18/2024 PHQ-2 (Physician [place]) Completed 05/17/2025 Meningococcal B Vaccine Aged Out No l onger eligible based on patient's age to complete this topic Meningococcal Vaccine Aged Out No melvin roxi eligible based on patient's age to complete this topic RSV Immunizations Under 20 Months Aged Out No longer eligible b ased on patient's age to complete this topic Procedures Procedure Name Priority Date/Time Associated Diagnosis Comments THYROID STIM HORMONE TSH Routine 03/13/2025 7:05 AM CDT Hypothyroidism XR LUMB SPINE+OBLS 5V Routine 02/23/2025 4:08 PM CDT Lumbar radiculopathy MG SCREENING W DENA GLENROY DIGI Routine 05/27/2024 3:03 PM CDT Screening mammogram for breast cancer HEPATITIS C ANTIBODY Routine 01/18/2024 3:30 PM CDT Neuropathy Fatigue Arthritis Myalgia Hypomagnesemia Iron deficiency anemia, unspecified Encounter for therapeutic drug monitoring Lupus ([facility]/HCC [facility]/HCC) Screening for viral disease RA (rheumatoid arthritis) Sjogren's syndrome COLOGUARD (EXACT SCIENCE) Routine 04/02/2023 11:31 AM CDT Screening for colon cancer from Last 3 Months or Most Recently Relevant to Health Maintenance Results * (ABNORMAL) THYROID STIM HORMONE TSH (03/13/2025 7:05 AM CDT) TSH 0.168(L) 0.358 - 3.74 uIU/ML 03/13/2025 10:33 AM CDT [facility] Comment: HIGH DOSES OF BIOTIN MAY INTERFERE WITH THIS TEST RESULT. CORRELATION TO CLINICAL HISTORY AND PRESENTATION RECOMMENDED. 03/13/2025 7:05 AM CDT us Elizabeth Loya FINANCIAL RESERVE CLERK LABORATORY Final Res ult [facility] [address] [place] [address], [place] [phone] * XR LUMB SPINE+OBLS 5V (02/23/2025 4:08 PM CDT) Anatomical Region Laterality Modality Spine Radiographic Char ging 02/24/2025 5:00 PM CDT Impressions 02/24/2025 5:06 PM CDT IMPRESSION: 1. No acute findings. Degenerative changes as above. 2. This film note made of moderately large amount of stool in colon. May be due to constipation. Referred By: Interpreted By: Mayur Crandall MD, 02/24/2025 5:00 PM Narrative 02/24/2025 5:06 PM CDT [facility] [address] [place] [address] IMAGING STUDIES: XR LUMB SPINE+OBLS 5V DATE: 02/23/2025 3:40 PM COMPARISON: Correlation with MRI lumbar spine of 02/09/2025 CLINICAL HISTORY: RADICULOPATHY. Chronic left-sided pain. No history of trauma. FINDINGS: No evidence of acute fracture or dislocation. Osteopenia limits exam. Vertebral body heights are well-maintained. Mild loss of disc space height at L4-5 and L5-S1. Grade 1 anterior spondylolisthesis of L4 on L5. Mild to moderate multilevel endplate and facet joint degenerative change.. No pars defect. No paraspinal lesions. On flexion and extension views there is no distinct movement. No change in the spondylolisthesis at L4 on L5 Procedure Note Mayur Crandall MD - 02/24/2025 [facility] [address] [place] [address] IMAGING STUDIES: XR LUMB SPINE+OBLS 5V DATE: 02/23/2025 3:40 PM COMPARISON: Correlation with MRI lumbar spine of 02/09/2025 CLINICAL HISTORY: RADICULOPATHY. Chronic left-sided pain. No historyof trauma. FINDINGS: No evidence of acute fracture or dislocation. Osteopenia limits exam. Vertebral body heights are well-maintained. Mild loss of disc spaceheight at L4- 5 and L5-S1. Grade 1 anterior spondylolisthesis of L4 on L5. Mild to moderatemultilevel endplate and facet joint degenerative change.. No pars defect. No paraspinal lesions. On flexion and extension views there is no distinct movement. No changein the spondylolisthesis at L4 on L5 IMPRESSION: 1. No acute findings. Degenerative changes as above. 2. This film note made of moderately large amount of stool in colon. Maybe due to constipation. Referred By: Interpreted By: Mayur Crandall MD, 02/24/2025 5:00 PM Fiona Ware ISOLATION WASHER GENERAL IMAGING Final Result * MG SCREENING W DENA GLENROY DIGI (05/27/2024 3:03 PM CDT) Anatomical Region Laterality Modality Breast Bilateral Mammography 06/10/2024 4:43 PM CDT Impressions 06/10/2024 4:48 PM CDT ===== IMPRESSION: ===== 1. Stable mammographic appearance with no new findings to suggest malignancy in either breast. Assessment: ACR BI-RADS 2 - BENIGN FINDING(S) Recommendation: 1:Routine Screening Bilateral Comments: Ordered By: ELIZABETH LOYA Interpreted By: Jerrell Crandall, 06/10/2024 4:43 PM Narrative 06/10/2024 4:48 PM CDT EXAMINATION: Digital bilateral screening mammogram with 3-D tomosynthesis EXAM DATE/TIME: 05/27/2024 2:25 PM REASON FOR EXAM: screening COMPARISON: 11/13/2020.. 03/29/2019 Technique: Digital screening mammography of both breasts was performed in addition to 3-D Tomosynthesis technique. This study was read with the assistance of a computer-aided detection system. Tissue density: The breast tissue is heterogeneously dense, which may obscure small masses. Findings: There is no new focal asymmetry, dominant mass lesion, area of skin thickening, or cluster of suspicious appearing calcifications in either breast to suggest malignancy. Elizabeth Loya FINANCIAL RESERVE CLERK MAMMO Final Res ult * HEPATITIS C ANTIBODY (01/18/2024 3:30 PM CDT) HEPATITIS C AB NON-REACTI VE NON-REACTI VE 01/18/2024 8:55 PM CDT [facility] 01/18/2024 3:30 PM CDT Liat Ramos MD LABORATORY Final Result [facility] [address] [place] [address], [place] [phone] * COLOGUARD (EXACT SCIENCE) (04/02/2023 11:31 AM CDT) COLOGUARD RESULT Negative Negative [employer] [facility] (CLIA #:[id number]) Comment: NEGATIVE TEST RESULT. A negative Cologuard result indicates a low likelihood that a colorectal cancer (CRC) or advanced adenoma (adenomatous polyps with more advanced pre-malignant features) is present. The chance that a person with a negative Cologuard test has a colorectal cancer is less than 1 in 1500 (negative predictive value >99.9%) or has an advanced adenoma is less than 5.3% (negative predictive value 94.7%). These data are based on a prospective cross-sectional study of 10,000 individuals at average risk for colorectal cancer who were screened with both Cologuard and colonoscopy. (Inez Conroy al, N Engl J Med 2014;370(14):4839-2070) The normal value (reference range) for this assay is negative. COLOGUARD RE-SCREENING RECOMMENDATION: Periodic colorectal cancer screening is an important part of preventive healthcare for asymptomatic individuals at average risk for colorectal cancer. Following a negative Cologuard result, the [place] Cancer Society and U.S. Multi-Society Task Force screening guidelines recommend a Cologuard re-screening interval of 3 years. References: [place] [employer] Society Guideline for Colorectal Cancer Screening: https://www.cancer.org/cancer/hhkex-ntdnmg-uaehlu/ashvrlchn-ahzuazuxx-zjjhxbu/ac s-rec ommendations.html.; Shahbaz DK, [place] CR, Gwyn TanK, Colorectal Cancer Screening: Recommendations for Physicians and Patients from the U.S. Multi-Society Task Force on Colorectal Cancer Screening , Am J Gastroenterology 2017; 112:9080-2784. TEST DESCRIPTION: Composite algorithmic analysis of stool DNA-biomarkers with hemoglobin immunoassay. Quantitative values of individual biomarkers are not reportable and are not associated with individual biomarker result reference ranges. Cologuard is intended for colorectal cancer screening of adults of either sex, 45 years or older, who are at average-risk for colorectal cancer (CRC). Cologuard has been approved for use by the U.S. FDA. The performance of Cologuard was established in a cross sectional study of average-risk adults aged 50-84. Cologuard performance in patients ages 45 to 49 years was estimated by sub-group analysis of near-age groups. Colonoscopies performed for a positive result may find as the most clinically significant lesion: colorectal cancer [4.0%], advanced adenoma (including sessile serrated polyps greater than or equal to 1cm diameter) [20%] or non- advanced adenoma [31%]; or no colorectal neoplasia [45%]. These estimates are derived from a prospective cross-sectional screening study of 10,000 individuals at average risk for colorectal cancer who were screened with both Cologuard and colonoscopy. (Inez Conroy al, N Engl J Med 2014;370(14):1691-4313.) Cologuard may produce a false negative or false positive result (no colorectal cancer or precancerous polyp present at colonoscopy follow up). A negative Cologuard test result does not guarantee the absence of CRC or advanced adenoma (pre-cancer). The current Cologuard screening interval is every 3 years. ([place] Cancer Society and U.S. Multi-Society Task Force). Cologuard performance data in a 10,000 patient pivotal study using colonoscopy as the reference method can be accessed at the following location: www.Sverve.Friends Around/results. Additional description of the Cologuard test process, warnings and precautions can be found at www.cycleWood Solutionsrd.com. STOOL STOOL SPECIMEN / Unknown 04/02/2023 11:31 AM CDT 04/04/2023 6:42 PM CDT Elizabeth DURAN BODY FLUIDS AND STOOLS OR DERABLES Final Result [facility]) [address] [place] [address], [facility] (CLIA #:[id number]) [address] [place] [address] from Last 3 Months or Most Recently Relevant to Health Maintenance Insurance Advance Directives Documents on File Type Date Recorded Patient Machine Sand Mixer Expl anation Legal Documents 09/29/2023 2:49 PM Care Teams Needle Punch Machine Operator Helper Relationship Specialty Start Date End Date Elizabeth Loya FNP [address] [place] [address] [place] [address] PCP - General NURSE PRACTITIONER 11/03/18
--- OUTSIDE RECORDS SUMMARY | 2025-05-23 00:31 | XMS_ITS | Encounter Summary ---
Author Organization [facility] Address [facility] [place] [address] Care Team Providers Care Sign Hanger Name Role Phone Elizabeth BurnsP Primary Care Provider [phone] Reason for Referral * Surgical (Routine) - Closed Specialty Diagnoses / Procedures Referred By Panchito hook Referred To Contact Procedures Case request operating room: INJECTION EPIDURAL TRANSFORAMINAL L5-S1 Suzanna Guerrero NP 3 [facility] [address] [place] [address] Phone: tel: [phone] fax: Referral ID Status Reason Start Date Expiration Date Visits Re quested Visits Authorized [id number] Closed 05/31/2019 07/01/2020 1 1 Encounter Details Date Type Department Care Team (Late st Contact Info) Description 05/31/2019 Prep for Procedure [facility] [place], [place] [phone] [id number] Suzanna Guerrero NP 3 [facility] [address] [place] [phone] (Work) Social History Tobacco Use Types Packs/Day Years Used Date Smoking Tobacco: Former Cigarettes 0.3 35 1 983 - 2018 Smokeless Tobacco: Former Alcohol Use Standard Drinks/Week Comments Yes 0 (1 standard drink = 0.6 oz pur e alcohol) social AUDIT-C Answer Date Recorded Frequency of Alcohol Consumption Monthly or less 05/24/2019 Average Number of Drinks Not on file 019 Frequency of Binge Drinking Not on file 05/03 Comments No Sex and Gender Information Value Date Recorded Sex Assigned at Female 12/05/2024 10:47 AM VIDEO CLERK Legal Sex Female 10:22 PM VIDEO CLERK Gender Identity Female 03/14/2025 3:45 PM CDT Sexual Orientation Not on file 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 of this encounter Plan of Treatment Upcoming Encounters Date Type Department Care Team (Late st Contact Info) Description 06/20/2025 3:20 PM CDT Allied Health/Nurse Visit [address] [place] [address] Elizabeth Burns [address] [place] [address] 07/19/2025 10:40 AM CDT Office Visit [facility] [address] [phone] Alisia Rascon NP [address] [address] 07/21/2025 2:40 PM CDT Office Visit [address] [place] [address] Elizabeth Burns [address] [place] [address] Scheduled Orders Name Type Priority Associated Diagnoses Order Schedule Case request operating room: INJECTION EPIDURAL TRANSFORAMINAL L5-S1 Case Request Routine Once for 1 Occurrences starting 05/31/2019 until 05/31/2019 documented as of this encounter Visit Diagnoses Not on filedocumented in this encounter Additional Health Concerns Infection Onset Date Last Indicated Resolved Time COVID-19 Rule Out 11/20/2022 11/20/2022 11/20/2022 10:34 AM VIDEO CLERK COVID-19 Rule Out 11/21/2022 11/21/2022 11/21/2022 12:44 PM VIDEO CLERK COVID-19 Rule Out 01/23/2023 01/23/2023 01/23/2023 1:50 PM CDT COVID-19 Rule Out 01/25/2023 01/25/2023 01/25/2023 11:12 AM CDT COVID-19 Rule Out 09/17/2023 09/17/2023 09/17/2023 11:08 AM VIDEO CLERK COVID-19 Rule Out 12/05/2024 12/05/2024 12/05/2024 11:14 AM VIDEO CLERK Influenza - Seasonal 12/05/2024 12/05/2024 025 12:32 AM VIDEO CLERK documented as of this encounter Care Teams Sign Hanger Relationship Specialty Start Date End Date Elizabeth [place] FNP [address] [place] [address] [place] [address] PCP - General NURSE PRACTITIONER 11/03/18 documented as of this encounter
--- OUTSIDE RECORDS SUMMARY | 2025-05-23 00:31 | XMS_ITS | Encounter Summary ---
Author Organization [facility] Address [facility] [place] [address] Care Team Providers Care Budget Report Clerk Name Role Phone Elizabeth Burns [facility] Primary Care Provider [phone] Encounter Details Date Type Department Care Team (Late st Contact Info) Description 01/20/[address] Message Enc [facility] [address] [place] [address] Elizabeth Burns [facility] [address] [place], [place] [id number] Blood test Social History Tobacco Use Types Packs/Day Years Used Date Smoking Tobacco: Some Days Cigarettes 0.5 1 Started: 2016; L ast attempted to quit: 2018 Electronic Cigarettes Smokeless Tobacco: Former Alcohol Use Standard Drinks/Week Comments Yes 0 (1 standard drink = 0.6 oz pur e alcohol) AUDIT-C Answer Date Recorded Frequency of Alcohol Consumption Monthly or less 05/24/2019 Average Number of Drinks Not on file 019 Frequency of Binge Drinking Not on file 05/03 PHQ-2 Answer Date Recorded Patient Health Questionnaire-2 Score 0 01/08/2024 Comments No Sex and Gender Information Value Date Recorded Sex Assigned at Female 12/05/2024 10:47 AM SCREENING NURSE Legal Sex Female 10:22 PM SCREENING NURSE Gender Identity Female 03/14/2025 3:45 PM CDT Sexual Orientation Not on file 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 of this encounter Plan of Treatment Upcoming Encounters Date Type Department Care Team (Late st Contact Info) Description 06/20/2025 3:20 PM CDT Allied Health/Nurse Visit [facility] [address] [place] [address] Elizabeth Burns FNP [address] [place] [address] 07/19/2025 10:40 AM CDT Office Visit [facility] [address] [phone] Alisia Rascon, CANDIS [address] [facility] [address] [place] [id number] 07/21/2025 2:40 PM CDT Office Visit [facility] [address] [facility] [place] [address] Elizabeth Burns FNP [address] [place] [place] [address] documented as of this encounter Visit Diagnoses Not on filedocumented in this encounter Additional Health Concerns Infection Onset Date Last Indicated Resolved Time COVID-19 Rule Out 12/05/2024 12/05/2024 12/05/2024 11:14 AM SCREENING NURSE Influenza - Seasonal 12/05/2024 12/05/2024 025 12:32 AM SCREENING NURSE documented as of this encounter Care Teams Budget Report Clerk Relationship Specialty Start Date End Date Elizabeth Burns FNP [address] [facility] [address] [place] [address] PCP - General NURSE PRACTITIONER 11/03/18 documented as of this encounter
[2025-05-23] MEDS: LACTATED RINGERS 1,000 ML 30 ML IV CONT ×2 (10:00→16:14)
[2025-05-23] MEDS: MORPHINE SULFATE INJ (*CRX) 10 MG/ML AMP 2 MG IV PUSH ×2 (10:05→12:45)
--- NOTE | 2025-05-23 13:14 | WPDANESEPPF ---
Anes - Initial Pre Proc Eval Procedure: Operation Date: 05/23/25 11:00 Proposed Procedures p L4-5 Posterior Lumbar Interbody Fusion - Juan Vaughn MD Date/Time: 05/23/25 13:14 Surgeon: Juan Vaughn MD Pre Op Diagnosis: L4-5 spondyolithesis Patient Data Age: 59 Gender: F Height: 1.52 m Weight: 84.6 kg Last Vital Signs Temp 98.4 F 05/23/25 10:00 Pulse 70 05/23/25 10:00 Resp 16 05/23/25 10:00 BP 133/74 05/23/25 10:00 Pulse Ox 100 05/23/25 10:00 O2 Del Method Room Air 05/23/25 10:00 Allergies Allergy/AdvReac Type Severity Reaction Status Date / Time oxycodone Allergy Headache Verified 05/23/25 09:58 Pork/Porcine Containing Allergy Headache Verified 05/23/25 09:58 Products strawberry Allergy Headache Verified 05/23/25 09:58 methylprednisolone AdvReac Swelling Verified 05/23/25 09:58 Sulfa (Sulfonamide AdvReac Hives Verified 05/23/25 09:58 Antibiotics) vinyl AdvReac Severe rash Uncoded 05/23/25 09:58 bandaids AdvReac Intermediate rash Uncoded 05/23/25 09:58 Home Medications ?Medication ?Instructions ?Recorded ?Confirmed ?Type meloxicam 15 mg tablet 15 mg PO DAILY 11/16/24 05/23/25 History metformin 500 mg tablet 500 mg PO BID 11/16/24 05/23/25 History omeprazole 40 mg capsule,delayed 40 mg PO DAILY 11/16/24 05/23/25 History release oxybutynin chloride 5 mg tablet 5 mg PO DAILY 11/16/24 05/23/25 History pregabalin 50 mg capsule 50 mg PO BID 11/16/24 05/23/25 History sertraline 25 mg tablet 25 mg PO DAILY 11/16/24 05/23/25 History atorvastatin 20 mg tablet (Lipitor) 20 mg PO DAILY 04/18/25 05/23/25 History levocetirizine 5 mg tablet 5 mg PO QPM 04/18/25 05/16/25 History milnacipran 100 mg tablet (Savella) 100 mg PO BID 04/18/25 05/23/25 History plecanatide 3 mg tablet (Trulance) 3 mg PO DAILY 04/18/25 05/23/25 History albuterol sulfate 90 mcg/actuation 2 puff inhalation Q4-6H PRN 05/16/25 05/16/25 History aerosol inhaler bronchospasm calcium no.26 167 mg-magnesium 1 cap PO DAILY 05/16/25 05/16/25 History no.15 83 mg-zinc 5 mg capsule (Zpgrtfc-Cxbjtwhco-Huel Complex) cholecalciferol (vitamin D3) 25 25 mcg PO DAILY 05/16/25 05/16/25 History mcg (1,000 unit) capsule levothyroxine 112 mcg tablet 112 mcg PO .EVENING 05/16/25 05/23/25 History thiamine 7 mg-vit B2 5 mg-niacin 4 1 tablet PO DAILY 05/16/25 05/16/25 History mg-B12 25 mcg-papain 10 mg tablet (B-Complex Plus B-12) turmeric 400 mg capsule 400 mg PO DAILY 05/16/25 05/16/25 History vitamin A 2,500 unit-vit C 100 1 cap PO DAILY 05/16/25 05/16/25 History mg-biotin 2,500 njp-upqr-kjiohq capsule (Hccw-Jfci-Hlhm (vit A,E-yywxov-Xb-Cu)) vitamin K2 90 mcg capsule 90 mcg PO DAILY 05/16/25 05/16/25 History Laboratory Tests 05/23/25 09:36 POC Capillary Glucose 88 mg/dl (65-105) Patient hx anesthesia problems: none Family hx anesthesia problems: none Results Review: All pre-operative results and documents have been reviewed as part of the pre-operative evaluation. [facility] Past Medical History Medical History Thyroid disorder Osteoporosis IBS (irritable bowel syndrome) Head ache GERD (gastroesophageal reflux disease) Diabetes Arthritis Anxiety Anemia Allergies Family History Family History Father Alcoholism Diabetes mellitus Cerebrovascular accident Heart disease Mother Asthma Diabetes mellitus Depression Anxiety Thyroid disorder Sibling Alcoholism Depression Anxiety Thyroid disorder Unknown Asthma Thyroid disorder Depression Anxiety Social History Social History Smoking packs per day: 1 Smoking cigarettes per day: 20.0 Years smoked: 25 Smoking pack-years: 25.00 Smoking status: Former smoker Tobacco type: cigarettes and e-cigarettes/vaping Smoking end date: 11/02/20 Additional smoking assessment comments: Stopped Vaping/esig yesterday Alcohol intake: never Substance use: current Substance use type: marijuana Other substance usage details: Gummies nightly to help sleep 2-3 times week Living arrangements: with family Additional living arrangements comments: Mom Spiritual care concerns: No Anes - Eval Final PreProcedure Day of Procedure 05/23/25 13:14 Patient weight: obese Lungs: normal air movement Airway: Mallampati scale class II Neurological: alert and oriented Last oral intake: >/= 8 hours ASA classification: III Emergent: no Anesthetic plan: proceed Anesthesia type and monitoring: general ETT and standard monitoring Results Review: All pre-operative results and documents have been reviewed as part of the pre-operative evaluation. Hyperlipidemia, BMI 36, ex smoker, now vapes, DM w fsbs 88. Informed Consent: The patient's anesthetic plan and its attendant risks and benefits were discussed with the patient/family/POA. Questions were solicited and answers provided to the satisfaction of the patient/family/POA.
--- NOTE | 2025-05-23 13:22 | PM.IMHP ---
H&P: HPI History of Present Illness Date/Time: 05/23/25 13:22 Chief Complaint: back and leg pain Narrative: Ashley is a 59-year-old female with a longstanding progressive issue with low back pain extending into her left lower extremity mainly. This discomfort is somewhat claudicatory. She has been dealing with that for 20 or more years in various ways. The discomfort extends down the left back and lateral hip and down the lateral thigh stopping at about the knee. There is numbness in the same distribution as the pain. She denies specific muscle group weakness. She does not remember specific inciting event. Over the years she has undergone multiple rounds of physical therapy and participated in pain management with injections which have not been permanently helpful. She does not report any bowel or bladder difficulty or other constitutional problems. The pain is severe and limiting for her on a daily basis makes difficult for her to walk significant distances. It is somewhat better if she sits but really in any prolonged posture activity probably case her pain. She must change her activity and position frequently. Review of Systems Review of Systems: All systems reviewed & are unremarkable except as noted in HPI and below Denies chills, Denies fever, Denies weight gain and Denies weight loss Eyes Denies change in vision and Denies diplopia ENT Denies disequilibrium Card Denies chest pain and Denies dyspnea Resp Denies cough and Denies dyspnea GI Denies abdominal pain, Denies change in bowel habits, Denies fecal incontinence and Denies vomiting Denies hematuria, Denies oliguria, Denies difficulty urinating, Denies dysuria, Denies urinary frequency, Denies urinary hesitancy, Denies urinary incontinence and Denies urinary urgency Musc Reports as per HPI Skin/ Breast Reports system reviewed and no additional complaints, except as documented Neuro Reports as per HPI Psych Reports no additional complaints, Denies depression and Denies hopelessness Endo Reports no additional complaints and Denies polyuria George/ Lymph Reports no additional complaints Aller/ Immun Reports no additional complaints PMFSH Past Medical History Medical History Thyroid disorder Osteoporosis IBS (irritable bowel syndrome) Head ache GERD (gastroesophageal reflux disease) Diabetes Arthritis Anxiety Anemia Allergies Family History Family History Father Alcoholism Diabetes mellitus Cerebrovascular accident Heart disease Mother Asthma Diabetes mellitus Depression Anxiety Thyroid disorder Sibling Alcoholism Depression Anxiety Thyroid disorder Unknown Asthma Thyroid disorder Depression Anxiety Social History Social History Smoking packs per day: 1 Smoking cigarettes per day: 20.0 Years smoked: 25 Smoking pack-years: 25.00 Smoking status: Former smoker Tobacco type: cigarettes and e-cigarettes/vaping Smoking end date: 11/02/20 Additional smoking assessment comments: Stopped Vaping/esig yesterday Alcohol intake: never Substance use: current Substance use type: marijuana Other substance usage details: Gummies nightly to help sleep 2-3 times week Living arrangements: with family Additional living arrangements comments: Mom Spiritual care concerns: No Meds Home Medications and Allergies Home Medications ?Medication ?Instructions ?Recorded ?Confirmed ?Type meloxicam 15 mg tablet 15 mg PO DAILY 11/16/24 05/23/25 History metformin 500 mg tablet 500 mg PO BID 11/16/24 05/23/25 History omeprazole 40 mg capsule,delayed 40 mg PO DAILY 11/16/24 05/23/25 History release oxybutynin chloride 5 mg tablet 5 mg PO DAILY 11/16/24 05/23/25 History pregabalin 50 mg capsule 50 mg PO BID 11/16/24 05/23/25 History sertraline 25 mg tablet 25 mg PO DAILY 11/16/24 05/23/25 History atorvastatin 20 mg tablet (Lipitor) 20 mg PO DAILY 04/18/25 05/23/25 History levocetirizine 5 mg tablet 5 mg PO QPM 04/18/25 05/16/25 History milnacipran 100 mg tablet (Savella) 100 mg PO BID 04/18/25 05/23/25 History plecanatide 3 mg tablet (Trulance) 3 mg PO DAILY 04/18/25 05/23/25 History albuterol sulfate 90 mcg/actuation 2 puff inhalation Q4-6H PRN 05/16/25 05/16/25 History aerosol inhaler bronchospasm calcium no.26 167 mg-magnesium 1 cap PO DAILY 05/16/25 05/16/25 History no.15 83 mg-zinc 5 mg capsule (Hbqiull-Fictkkqgv-Jquw Complex) cholecalciferol (vitamin D3) 25 25 mcg PO DAILY 05/16/25 05/16/25 History mcg (1,000 unit) capsule levothyroxine 112 mcg tablet 112 mcg PO .EVENING 05/16/25 05/23/25 History thiamine 7 mg-vit B2 5 mg-niacin 4 1 tablet PO DAILY 05/16/25 05/16/25 History mg-B12 25 mcg-papain 10 mg tablet (B-Complex Plus B-12) turmeric 400 mg capsule 400 mg PO DAILY 05/16/25 05/16/25 History vitamin A 2,500 unit-vit C 100 1 cap PO DAILY 05/16/25 05/16/25 History mg-biotin 2,500 ias-tkuu-ptqmzt capsule (Bxki-Tdtv-Dpap (vit A,C-hvjhfc-Ug-Cu)) vitamin K2 90 mcg capsule 90 mcg PO DAILY 05/16/25 05/16/25 History Allergies Allergy/AdvReac Type Severity Reaction Status Date / Time oxycodone Allergy Headache Verified 05/23/25 09:58 Pork/Porcine Containing Allergy Headache Verified 05/23/25 09:58 Products strawberry Allergy Headache Verified 05/23/25 09:58 methylprednisolone AdvReac Swelling Verified 05/23/25 09:58 Sulfa (Sulfonamide AdvReac Hives Verified 05/23/25 09:58 Antibiotics) vinyl AdvReac Severe rash Uncoded 05/23/25 09:58 bandaids AdvReac Intermediate rash Uncoded 05/23/25 09:58 Vital Signs Vital Signs - 24 hr 05/23/25 10:00 Temperature 98.4 F Pulse Rate 70 Respiratory Rate 16 Blood Pressure 133/74 Pulse Oximetry 100 Oxygen Delivery Room Air Exam Narrative: General: cooperative, no acute distress, well developed, alert and awake Orientation/Consciousness: oriented to person, oriented to place and oriented to time Constitutional Limitations: no limitations Other: The patient is a normally developed, normal appearing female sitting on the examination table in no acute distress. She is awake, alert, and oriented x3 with good fund of knowledge, recall of events, and fluent speech. HENMT Head: normocephalic and atraumatic Ears: external ears normal Face/Nose/Sinus: Normal external nose present Eyes Eyelids: eyelids normal Pupils: Yes Pupils normal by confrontation EOM: EOMs intact bilaterally Neck General: Yes no meningeal signs, Yes supple and Yes no JVD Resp Effort/Inspection: normal respiratory effort and able to speak in complete sentences Cardio Rate: Yes regular rate GI Inspection: No abdominal distension Musc Other: Examination of the back reveals no tenderness. Range of motion of the back is full without pain in forward flexion, extension, and lateral rotation to both sides. Straight leg raise is negative bilaterally. Rafael?s test is negative bilaterally. Skin General: normal color Neuro General: Yes oriented to person, Yes oriented to place, Yes oriented to time, Yes normal cognition and Yes no meningeal signs Cranial Nerves: Yes CN's II-XII intact bilaterally Other: Motor: Strength is normal, 5/5, throughout all muscle groups of the bilateral lower extremities to direct confrontation. Sensory: Sensation is intact to light touch throughout the lower extremities bilaterally. Reflexes: Deep tendon reflexes are 1 to 2+ at the patella and Achilles bilaterally. There is no clonus. Gait: Gait, station, and transfers are independent and steady for short periods of time and over short distances. Psych Appearance: grossly normal Mental status: Yes mental status grossly normal Mood: congruent mood Affect: Yes normal affect Speech/Movement: Normal speech and movement present Attitude: Yes cooperative Thought Content: Normal thought content present Review of studies: MRI of the lumbar spine was personally reviewed by me. This demonstrates a grade 1 spondylolisthesis at L4-5 causing severe central canal And lateral recess stenosis. There was severe spondylosis at this level. This is lesser at other levels. Assessment and Plan Assessment and plan (1) Spondylolisthesis at L4-L5 level: Code(s): M43.16 - Spondylolisthesis, lumbar region Status: Acute Assessment and Plan: Ashley is a 59-year-old female with a spondylolisthesis and stenosis at L4-5 causing back and lower extremity discomfort that is limiting and distracting for her on a daily basis. She has exhausted nonsurgical management and desires definitive treatment of this problem. I have therefore recommended to her and L4-5 posterior lumbar interbody fusion described to her that operation, its risks, potential benefits, the operative and postoperative course in detail and answered all her questions personally. We discussed risks including but not limited to permanent neurologic deficit secondary to nerve root injury, need for reoperation secondary to infection, bleeding, CSF leak, adjacent level disease, recurrent residual pathology or instability, malposition migration of the hardware nonunion, failure of the procedure to relieve her pain or symptoms, persistent pain, medical complications related anesthesia or surgery, etc.. She indicates understanding and elects to proceed with that operation.
--- NOTE | 2025-05-23 13:23 | WPDHPUPDATE1 ---
History and Physical Update Update Date/Time: 05/23/25 13:23 History and Physical has been reviewed, including an updated exam of the patient. There are NO changes in the patient's condition. Risks, benefits, and alternatives have been discussed and questions answered. Patient agrees to proceed with procedure.
[2025-05-23] MEDS: ceFAZolin 2 GM in SODIUM CHLORIDE 0.9% IV 50 ML 100 ML IVPB (13:40)
[2025-05-23] MEDS: LIDO 1%/EPINEPHRINE 1:100,000 20 ML VIAL 30 ML INFILTRATE (14:27)
[2025-05-23] MEDS: fentaNYL CITRATE INJ (*CRX) 100 MCG/2 ML VIAL 25 MCG IV PUSH ×4 (16:39→16:53)
--- NOTE | 2025-05-23 17:43 | ADMGEN ---
This patient, Ashley Tidwell, was admitted to Medical Room 249-01. Patient/family oriented to hospital policies and general routines including ID bracelet, bed and alarms, visiting hours, pain management, procedures, bathroom and other care routines, personal items, smoking policy, room service/diet, and visiting hours. Information on how to activate the Rapid Response Team has been discussed. Patient/Family are encouraged to report perceived risks to care and to ask questions if they do not understand what they are told or what they should do.
[2025-05-23] MEDS: HYDROcodone/acetaminophen (*CRX) 10-325 MG TABLET 1 TAB PO ×2 (18:07→23:19)
[2025-05-23] MEDS: KCL 20 MEQ/D5/0.45% SOD CHL 1,000 ML 100 ML IV CONT (18:08)
[2025-05-23] MEDS: LORATADINE 10 MG TABLET PO (18:08)
[2025-05-23] MEDS: PREGABALIN (*CRX) 50 MG CAPSULE PO (18:08)
[2025-05-23] MEDS: ONDANSETRON INJ 4 MG/2 ML VIAL IV PUSH (18:49)
--- NOTE | 2025-05-23 23:09 | PC.NURSE ---
Report received from RUDY Melchor. Per patient request, female nursing staff is preferred.
[2025-05-23] MEDS: ceFAZolin 1 GM in SODIUM CHLORIDE 0.9% IV 50 ML 100 ML IVPB (23:10)
[2025-05-23] MEDS: CYCLOBENZAPRINE HCL 10 MG TABLET PO (23:19)
--- NOTE | ~2025-05-24 | XR_ITS ---
EXAMINATION: XR fluoroscopy no charge DATE: 05/23/2025 14:40 CDT INDICATION: POSTERIOR LUMBAR . TECHNIQUE: 3 fluoroscopic images of the lumbar spine were obtained during posterior lumbar fusion. Fl uoroscopy exposure time was 4 seconds. Air Kerma 4.4256 mGy. DAP 0.8773 mGym2. COMPARISON: None FINDINGS/IMPRESSION: Fluoroscopic documentation of posterior lumbar fusion. Please refer to the operative note for complet e procedural details. Reviewed, dictated and finalized at location K.
[2025-05-24 00:26] VITALS: BP 90/48; PULSE 79; RESP 20; TEMP 36.5; O2SAT 94
[2025-05-24 04:27] VITALS: BP 141/55; PULSE 76; RESP 20; TEMP 36.3; O2SAT 100
[2025-05-24] MEDS: HYDROcodone/acetaminophen (*CRX) 10-325 MG TABLET 1 TAB PO ×3 (04:56→18:12)
[2025-05-24] MEDS: KCL 20 MEQ/D5/0.45% SOD CHL 1,000 ML 100 ML IV CONT ×2 (04:58→18:12)
[2025-05-24] MEDS: ceFAZolin 1 GM in SODIUM CHLORIDE 0.9% IV 50 ML 100 ML IVPB ×3 (04:59→21:35)
[2025-05-24] MEDS: LEVOTHYROXINE SODIUM 112 MCG TABLET PO (06:03)
[2025-05-24] MEDS: HYDROmorphone HCL INJ (*CRX) 2 MG/ML VIAL 0.5 MG IV PUSH (06:06)
[2025-05-24] MEDS: CHOLECALCIFEROL (VITAMIN D3) 25 MCG (1,000 UNITS) TABLET PO (08:29)
[2025-05-24] MEDS: SERTRALINE HCL 25 MG TABLET PO (08:30)
[2025-05-24] MEDS: ATORVASTATIN 20 MG TABLET PO (08:30)
[2025-05-24] MEDS: PANTOPRAZOLE 40 MG TABLET PO ×2 (08:30→18:12)
[2025-05-24] MEDS: PREGABALIN (*CRX) 50 MG CAPSULE PO ×2 (08:30→18:12)
[2025-05-24] MEDS: ONDANSETRON INJ 4 MG/2 ML VIAL IV PUSH (09:12)
[2025-05-24] MEDS: CYCLOBENZAPRINE HCL 10 MG TABLET PO ×2 (09:12→18:13)
[2025-05-24 12:27] VITALS: BP 112/66; PULSE 78; RESP 16; TEMP 36.4; O2SAT 97
--- NOTE | 2025-05-24 13:04 | WPDNEUROSGPN ---
Progress Note: A&P Assessment and Plan (1) Status post lumbar spinal arthrodesis: Code(s): Z98.1 - Arthrodesis status Status: Acute Plan -Will make adjustments to pain medications -Keep hemovac drain today -Mobilize in halls -Anticipate discharge home tomorrow Subjective Date/time seen: 05/24/25 13:04 Interval history: Having quite a bit of back pain which is not being sufficiently relieved with medication. No leg pain at this time. She ambulated with therapy. She has some nausea and is not eating. Schwartz has been removed. Review of Systems Review of Systems: All systems reviewed & are unremarkable except as noted in HPI and below Exam Narrative: Incision c/d/i Moving legs with good strength Sensation intact to light touch HV 140cc out Objective Data Vital Signs Vital Signs: Vital Signs - 24 hr 05/23/25 16:14 05/23/25 16:25 05/23/25 16:35 Temperature 97.9 F Pulse Rate 90 86 Respiratory Rate 12 12 Blood Pressure 139/68 144/84 H Pulse Oximetry 97 100 Oxygen Delivery Simple Face Mask Simple Face Mask Room Air Oxygen Flow Rate 8 8 05/23/25 16:40 05/23/25 16:55 05/23/25 17:10 Temperature Pulse Rate 77 81 81 Respiratory Rate 12 20 15 Blood Pressure 123/63 134/64 130/61 Pulse Oximetry 97 97 97 Oxygen Delivery Nasal Cannula Nasal Cannula Nasal Cannula Oxygen Flow Rate 2 2 2 05/23/25 17:23 05/23/25 17:35 05/23/25 17:50 Temperature 98.2 F 98.2 F 98.0 F Pulse Rate 85 76 74 Respiratory Rate 20 16 16 Blood Pressure 126/71 122/68 124/64 Pulse Oximetry 97 100 100 Oxygen Delivery Nasal Cannula Oxygen Flow Rate 2 05/23/25 18:20 05/23/25 19:43 05/23/25 20:27 Temperature 98.0 F 97.8 F Pulse Rate 78 85 Respiratory Rate 16 20 Blood Pressure 126/72 106/61 Pulse Oximetry 93 95 Oxygen Delivery Room Air Oxygen Flow Rate 05/23/25 20:40 05/24/25 00:26 05/24/25 04:27 Temperature 97.7 F 97.3 F L Pulse Rate 79 76 Respiratory Rate 20 20 Blood Pressure 90/48 L 141/55 H Pulse Oximetry 94 100 Oxygen Delivery Room Air Oxygen Flow Rate 05/24/25 11:17 05/24/25 11:22 05/24/25 11:47 Temperature Pulse Rate Respiratory Rate Blood Pressure Pulse Oximetry Oxygen Delivery Room Air Room Air Room Air Oxygen Flow Rate Intake/Output Intake/Output: Intake & Output 05/21/25 05/22/25 05/23/25 05/24/25 23:59 23:59 23:59 23:59 Intake Total 1200 1790 Output Total 10 1680 Balance 1190 110 Meds/Results Medications: Active Medications Generic Name Dose Route Start Last Admin Trade Name Freq PRN Reason Stop Dose Admin Acetaminophen 1,000 mg 05/24/25 13:05 Acetaminophen 500 Mg Tablet PO Q6H CURTIS Al Hydrox/Mg Hydrox/Simethicone 20 ml 05/23/25 17:27 Mag Hydrox/Al Hydrox/Simeth 30 Ml Udc PO Q4H PRN Indigestion/Heartburn Albuterol 2 puff 05/23/25 17:27 Albuterol Sulfate (*Sp) Aerosol 1 Puff INHALATION Q4-6H PRN bronchospasm Atorvastatin Calcium 20 mg 05/24/25 09:00 05/24/25 08:30 Atorvastatin 20 Mg Tablet PO 20 mg DAILY CURTIS Administration Bisacodyl 10 mg 05/23/25 17:27 Bisacodyl 10 Mg Suppository RECTAL DAILY PRN Constipation Calcium Carbonate 200 mg 05/24/25 12:56 Calcium Carbonate (Tums) 500 Mg (200 Mg Elemental) PO Q6H PRN Indigestion Cyclobenzaprine HCl 10 mg 05/23/25 17:27 05/24/25 09:12 Cyclobenzaprine Hcl 10 Mg Tablet PO 10 mg TID PRN Administration Muscle Spasms Hydromorphone HCl 0.5 mg 05/23/25 17:36 05/24/25 06:06 Hydromorphone Hcl Inj (*Crx) 2 Mg/Ml Vial IV PUSH 0.5 mg Q2H PRN Administration Pain Rated 7-10 Cefazolin Sodium 1 gm/ Sodium 50 mls @ 100 mls/hr 05/23/25 22:00 05/24/25 04:59 Chloride IVPB 100 mls/hr Q8H CURTIS Administration Potassium Chloride/Dextrose/Sod Cl 1,000 mls @ 100 mls/hr 05/23/25 17:27 05/24/25 04:58 Kcl 20 Meq/D5/0.45% Sod Chl IV CONT 100 mls/hr .Q10H CURTIS Administration Levothyroxine Sodium 112 mcg 05/24/25 06:30 05/24/25 06:03 Levothyroxine Sodium 112 Mcg Tablet PO 112 mcg DAILY@0630 CURTIS Administration Loratadine 10 mg 05/23/25 18:00 05/23/25 18:08 Loratadine 10 Mg Tablet PO 10 mg QPM CURTIS Administration Metformin HCl 500 mg 05/23/25 17:27 05/24/25 08:29 Metformin Hcl 500 Mg Tablet PO 500 mg BID CURTIS Administration Miscellaneous Information 1 each 05/24/25 00:01 Savella Is Nonform; Can Pt Use From Home? XX 06/23/25 00:00 CLARIFY CURTIS Miscellaneous Information 1 each 05/24/25 00:01 Trulance Is Nonform; Can Pt Use From Home? XX 06/23/25 00:00 CLARIFY CURTIS Non-Formulary Medication 100 mg 05/23/25 17:27 Milnacipran [Savella] PO 06/22/25 17:26 BID CURTIS Non-Formulary Medication 3 mg 05/24/25 09:00 Plecanatide [Trulance] PO 06/23/25 08:59 DAILY CURTIS Non-Formulary Medication 1 each 05/23/25 17:37 Nonformulary Nutritional Supplement XX 05/24/25 17:36 PRN PRN PROTOCOL Non-Formulary Medication 1 each 05/23/25 17:38 Nonformulary Nutritional Supplement XX 05/24/25 17:37 PRN PRN PROTOCOL Non-Formulary Medication 1 each 05/23/25 17:39 Nonformulary Nutritional Supplement XX 05/24/25 17:38 PRN PRN PROTOCOL Non-Formulary Medication 1 each 05/23/25 17:39 Nonformulary Nutritional Supplement XX 05/24/25 17:38 PRN PRN PROTOCOL Non-Formulary Medication 1 each 05/23/25 17:40 Nonformulary Nutritional Supplement XX 05/24/25 17:39 PRN PRN PROTOCOL Ondansetron HCl 4 mg 05/23/25 17:27 05/24/25 09:12 Ondansetron Inj 4 Mg/2 Ml Vial IV PUSH 4 mg Q8H PRN Administration Nausea And Vomiting Oxybutynin Chloride 5 mg 05/24/25 09:00 05/24/25 08:29 Oxybutynin Chloride 5 Mg Tablet PO 5 mg DAILY CURTIS Administration Oxycodone HCl 5 mg 05/24/25 13:02 Oxycodone Hcl (*Crx) 5 Mg Tab Ir PO Q4H PRN Pain Rated 4-6 Oxycodone HCl 10 mg 05/24/25 13:02 Oxycodone Hcl (*Crx) 5 Mg Tab Ir PO Q4H PRN Pain Rated 7-10 Pantoprazole Sodium 40 mg 05/24/25 09:00 05/24/25 08:30 Pantoprazole 40 Mg Tablet PO 40 mg BID CURTIS Administration Pregabalin 50 mg 05/23/25 17:27 05/24/25 08:30 Pregabalin (*Crx) 50 Mg Capsule PO 50 mg BID CURTIS Administration Senna/Docusate Sodium 1 tab 05/23/25 17:27 Senna/Docusate Sodium Tablet PO HS PRN Constipation Sertraline HCl 25 mg 05/24/25 09:00 05/24/25 08:30 Sertraline Hcl 25 Mg Tablet PO 25 mg DAILY CURTIS Administration Vitamin D 25 mcg 05/24/25 09:00 05/24/25 08:29 Cholecalciferol (Vitamin D3) 25 Mcg (1,000 Units) Tablet PO 25 mcg DAILY CURTIS Administration Labs Labs: Laboratory Results - last 24 hr 05/23/25 05/23/25 13:31 16:20 POC Capillary Glucose 87 106 H
[2025-05-24] MEDS: ACETAMINOPHEN 500 MG TABLET 1000 MG PO (13:22)
[2025-05-24] MEDS: oxyCODONE HCL (*CRX) 5 MG TAB IR 10 MG PO (13:22)
[2025-05-24] MEDS: CALCIUM CARBONATE (TUMS) 500 MG (200 MG ELEMENTAL) PO (13:23)
[2025-05-24 16:27] VITALS: BP 108/61; PULSE 82; RESP 16; TEMP 36.4; O2SAT 97
[2025-05-24] MEDS: LORATADINE 10 MG TABLET PO (18:12)
[2025-05-24 19:57] VITALS: BP 103/54; PULSE 83; RESP 17; TEMP 37; O2SAT 92
[2025-05-24] MEDS: HYDROcodone/acetaminophen (*CRX) 5-325 MG TABLET 1 TAB PO (21:40)
[2025-05-25] MEDS: HYDROcodone/acetaminophen (*CRX) 10-325 MG TABLET 1 TAB PO (02:00)
[2025-05-25 04:48] VITALS: BP 100/60; PULSE 113; RESP 17; TEMP 37.2; O2SAT 97
[2025-05-25] MEDS: ceFAZolin 1 GM in SODIUM CHLORIDE 0.9% IV 50 ML 100 ML IVPB (06:06)
[2025-05-25] MEDS: LEVOTHYROXINE SODIUM 112 MCG TABLET PO (06:06)
[2025-05-25] MEDS: CYCLOBENZAPRINE HCL 10 MG TABLET PO ×2 (06:09→14:06)
[2025-05-25] MEDS: HYDROcodone/acetaminophen (*CRX) 5-325 MG TABLET 1 TAB PO ×3 (06:09→14:06)
--- NOTE | 2025-05-25 09:51 | PC.NURSE ---
RN called Roderick to let him know patient pulled out her hemovac. No one answered. No bleeding noted from site.
[2025-05-25] MEDS: PANTOPRAZOLE 40 MG TABLET PO (09:58)
[2025-05-25] MEDS: SERTRALINE HCL 25 MG TABLET PO (09:58)
[2025-05-25] MEDS: CHOLECALCIFEROL (VITAMIN D3) 25 MCG (1,000 UNITS) TABLET PO (09:58)
[2025-05-25] MEDS: PREGABALIN (*CRX) 50 MG CAPSULE PO (09:58)
[2025-05-25] MEDS: ATORVASTATIN 20 MG TABLET PO (09:58)
--- NOTE | 2025-05-25 12:55 | P.DS_ITS ---
DS: Admitting Diagnosis Discharge Date May 25, 2025 Admitting Diagnosis Lumbar spondylolisthesis DS: Discharge Diagnosis Discharge Diagnosis (1) Status post lumbar spinal arthrodesis: Code(s): Z98.1 - Arthrodesis status Status: Acute DS: Summary Hospital Course Hospital Course: Ms. Tidwell is a 59-year-old female presented on May 23 for surgery in the form of L4-5 PLIF. Please see the operative note for more details. She was transferred to the floor after surgery. She worked with physical therapy postoperatively who cleared her for discharge home. Her pain on postoperative day 1 was significant, so adjustments to her medications were made. She was feeling much better by postoperative day 2. Her Hemovac drain was unintentionally removed on the morning of postoperative day 2. She was tolerating oral intake and ambulating independently. She is ready for discharge home on postoperative day 2. Time Spent with Patient Time attestation: Total time spent providing and/or coordinating discharge services: Discharge Plan Discharge Discharging Clinician: Dana Bach Patient Disposition: Home Activity: other - see discharge instructions Diet: as tolerated Wound Care Instructions: follow printed instructions Discharge Instructions: INSTRUCTIONS AFTER YOUR LUMBAR FUSION ? Your incision is covered with skin glue. This will peel off on its own in a couple weeks. ? You may shower and get your incision wet with soap and water starting on post- operative day 2. Do not submerge the incision under water (like in a bathtub or swimming pool) for 6 weeks after surgery. Never apply ointments or lotions to the incision. ? The incision should be checked daily. Notify the office if there is drainage, redness, or if you have fever with a temperature of over 101 degrees. ? You are encouraged to walk as much as comfortable, with assistance as needed. For example, it may be beneficial to walk short distances hourly during the waking hours and gradually increase walking during your recovery period. Fatigue can be common. ? Avoid any bending, heavy lifting, or twisting movements. ? You have an pbsuw-xv-kms-pound lift restriction until further advised by your physician (a gallon of milk weighs eight pounds). ? Make frequent position changes, avoiding long periods of sitting. Try not to sit more than 60 minutes at a time. ? You may engage in sexual activity in two weeks as tolerated. ? No housework, especially vacuuming, making beds, or doing laundry until seen in the office. ? You may walk stairs carefully. ? Minimize long car rides for the first two weeks. You may resume driving when you feel comfortable; however, you may not drive if still taking narcotic pain medications. ? You should start with Tylenol 1000mg every 6 hours for pain first. If the Tyl enol is not effective, you may then take oxycodone. ? The physician may order pain medication and/or muscle relaxers. As time goes by, you should require less of these. Always take your medication as ordered, and only if needed. If you take more than prescribed, it will not be refilled early. If you feel you require narcotic medication refill, kindly give the office a 72-hour notice. No refills are given over the weekend. ? Avoid use of anti-inflammatory medications (like Ibuprofen, Aleve, Advil, Motrin) for up to three months following fusion surgery. Use of these medications may slow healing. ? Resume your usual diet. Constipation is a common problem postop. You may use any over the counter laxative, or stool softener. Always follow the bottle directions. ? Use of nicotine products should be stopped completely. Smoking can slow the healing process significantly. It can also increase the chance for developing postop pneumonias and other complications. Please avoid use of all nicotine products for at least three months after spine surgery. FOLLOW-UP ? Schedule an appointment with your primary care physician in the near future to ensure he/she is aware of your recent hospitalization and surgery and to ensure your other medical issues are being properly managed. This is particularly important to ensure your blood sugars are being well-controlled while you are healing from surgery. For urgent calls after hours, please call our exchange through our office at : ? Call the office for: o Appointment set up. o Fever greater than 101 degrees. o Increased pain, swelling, redness or drainage from your incision. o Trouble swallowing or breathing. o Pain, swelling or weakness of your legs. o Any other question or concerns you may have. Juan Vaughn MD [facility] [address], [place] [address] Patient Instructions: Antibiotic Form Patient Language: Polish Stand Alone Forms: General Discharge Information Follow-up/Referrals: Juan Vaughn MD [Physician] - Discharge Medications: New cyclobenzaprine 10 mg Tablet 10 mg PO TID PRN (Reason: Muscle Spasms) 10 Days Qty: 30 0RF sennosides-docusate sodium [Senokot-S] 8.6-50 mg Tablet 1 tab-cap PO DAILY Qty: 14 0RF hydrocodone-acetaminophen 5-325 mg Tablet 1 tablet PO Q4H PRN (Reason: Pain Rated 4-6) 7 Days Qty: 42 0RF Continued pregabalin 50 mg capsule 50 mg PO BID omeprazole 40 mg capsule,delayed release(DR/EC) 40 mg PO DAILY sertraline 25 mg tablet 25 mg PO DAILY metformin 500 mg tablet 500 mg PO BID oxybutynin chloride 5 mg tablet 5 mg PO DAILY Trulance 3 mg tablet 3 mg PO DAILY Savella 100 mg tablet 100 mg PO BID levocetirizine 5 mg tablet 5 mg PO QPM atorvastatin [Lipitor] 20 mg tablet 20 mg PO DAILY levothyroxine 112 mcg tablet 112 mcg PO .EVENING albuterol sulfate 90 mcg/actuation HFA aerosol inhaler 2 puff INHALATION Q4-6H PRN (Reason: bronchospasm) Odvhpzm-Miudgqjrv-Yhhh Complex 167 mg calcium- 83 mg-5 mg capsule 1 cap PO DAILY Bprx-Craj-Jfjt(vit A,C-biotin) 2,500 unit-100 mg-2,500 mcg capsule 1 cap PO DAILY turmeric 400 mg capsule 400 mg PO DAILY cholecalciferol (vitamin D3) 25 mcg (1,000 unit) capsule 25 mcg PO DAILY vitamin K2 90 mcg capsule 90 mcg PO DAILY B-Complex Plus B-12 7 mg-5 mg-4 mg- 25 mcg-10 mg tablet 1 tablet PO DAILY Held meloxicam 15 mg tablet 15 mg PO DAILY Hold Instructions: Resume on 08/16/25. Patient Comments: HOLD for [address] Vaughn Date of admission: 05/24/25 13:26 Primary Care Provider: MarciElizabeth Admitting Provider: Juan Vaughn Attending physician on admission: Juan Vaughn Condition: Stable
--- NOTE | 2025-06-13 07:54 | P.OP_ITS ---
Procedure Note - Detailed Date of Procedure 05/23/25 Pre-op Diagnosis L4-5 spondyolithesis Post-op Diagnosis Same Procedure Performed L4-5 complete laminectomy and bilateral facetectomy, L4-5 complete diskectomy and interbody arthrodesis utilizing titanium interbody devices and local autograft, L4-5 pedicle screw instrumentation Surgeon Juan Vaughn MD Anesthesia General Description of Procedure Patient was brought to the operating room in the supine position, was sedated, intubated and placed under general anesthesia in routine fashion. He was then turned into the prone position on a Lazaro frame. There operation on his back was examined, marked for incision, prepped and draped in routine sterile fashion. Incision was marked over the L4-L5 spinous processes in the midline. This area was injected with 0.5% lidocaine with [id number] epinephrine. Intravenous antibiotics given prior to incision. Incision was made with a 10 blade scalpel down to the lumbodorsal fascia. A subperiosteal dissection of the muscle soft tissue away from spinous process and lamina at L4-5 was performed with a subperiosteal elevator and Bovie cautery. Verifying x-rays obtained to verify the level of operation. The L4 spinous process was removed with a Capri rongeur. Kerrison punches and curved curettes were used to define a plane with the dura and removed bone and ligament in the midline to the soft contents of the canal were encountered. Midas Shahbaz drill was then used to resect the pars bilaterally. The inferior articular process and facet of L for could then be removed bilaterally. These +is spinous process were stripped free of soft tissue and morselized for later use as interbody autograft. Kerrison punches and curved curettes were used to define a plane with the dura and removed bone and ligament flush with the pedicle and through the foramina widely decompressing the exiting nerve roots. With the thecal sac retracted and protected the disc spaces entered bilaterally using an 11 blade scalpel. Scrapers a very sizes, curettes of various configurations, pituitary rongeur and a rasp were used to remove as much cartilaginous endplate and disc material as possible down to bleeding cortical flat surfaces on the opposing bones. The disc spaces and sized appropriately sized interbody devices were chosen and filled local autograft bone. The disc space was likewise filled with local autograft bone medially and anteriorly. The interbody devices were then placed to 2-3 mm countersink within the disc space bilaterally. Pedicle screw instrumentation was then performed at L4-L5 by observing palpating the pedicle wall a hole was made in superior to the process above the pedicle using a Midas Shahbaz drill. Pedicle was then cannulated with a pedicle probe, checked for continuity with the ball probe, tapped with a 5.5 mm tap a 6.5 x 50 mm screw was placed in each pedicle on each side. Rods were placed in the screw heads on either side and secured in position using the caps that purpose. These are due definitively tightened with a torque and anti torque device. Verifying x-rays obtained to verify correct position of the instrumentation which was confirmed. The wound was copiously irrigated with bacitracin irrigation all bleeding stopped with bipolar Bovie cautery and Gelfoam thrombin powder. The wound was then closed in layered fashion over medium Hemovac drain placed in a subfascial position buried out to the inferior right of the incision. 2-0 Vicryl inte rrupted sutures were placed in the lumbodorsal fascia and Bee's layer. 3-0 Vicryl buried interrupted sutures were placed in the dermis and the skin was closed with a running 4-0 Monocryl subcuticular stitch and dressed with Dermabond. The patient was allowed to wake up in the operating room and was taken to the recovery room in stable condition. There were no immediate complications of thi s operation. All counts were reported correct at the end of the case. Blood loss was 200 cc. The patient was neurologically at her baseline postoperatively. CPT codes: 37442, 89659, 77956, 06022, 25817 Estimated Blood Loss 200 Complications None Condition Stable Disposition PACU [facility] Billing Surgery - Charge Forward: Surgery Billing
== END 2025-05-25 14:15 | disposition home or self-care (01) ==
LOC: ANHSURGERY 14:15 → ANH2MED 05-25 12:50
PROVIDERS: Admitting Provider Neurological Surgery; PCP Registered Nurse; Visit Provider Neurological Surgery
PROC: (CPT 22612; principal; 2025-05-23 11:00)
DX: M43.16 Spondylolisthesis, lumbar region (principal); M81.0 Age-related osteoporosis without current pathological fracture; E11.9 Type 2 diabetes mellitus without complications; K58.9 Irritable bowel syndrome, unspecified; K21.9 Gastro-esophageal reflux disease without esophagitis; F41.9 Anxiety disorder, unspecified; E66.9 Obesity, unspecified; Z68.36 Body mass index [BMI] 36.0-36.9, adult; Z79.84 Long term (current) use of oral hypoglycemic drugs; Z79.899 Other long term (current) drug therapy; Z87.891 Personal history of nicotine dependence; Z88.2 Allergy status to sulfonamides; Z88.8 Allergy status to other drugs, medicaments and biological substances
CPT/HCPCS: 22630; 22853; 63052; 20936; 82948; 97161; 97165; 97530; 99199; J0690; A9270; C1713; G0378; J1100; J1171; J2003; J2004; J2250; J2270; J2405; J2704; J3010; J3480; J7120

== ENCOUNTER 2025-06-06 12:38 | Outpatient (CLI) | payer BC, SELFPAY ==
--- NOTE | ~2025-06-06 | XR_ITS ---
Lumbosacral Spine: AP and lateral views Clinical History: Pain Findings: The normal lordotic curve is maintained. There is posterior and interbody fusion from L4 to L5 with grade 1 anterolisthesis at this level. Remaining disc spaces are preserved. The sacroiliac j oints are normally outlined. Impression: Postoperative change at the L4-L5 level, with underlying anterolisthesis at this level. Reviewed, dictated and finalized at location . Impression: Postoperative change at the L4-L5 level, with underlying anterolisthesis at thi s level.
--- OUTSIDE RECORDS SUMMARY | 2025-06-06 12:42 | XMS_ITS | Patient Health Record ---
Author Organization [facility] laurel Lucas Address [address] [place] [address] Care Team Providers Care Web Content Editor Name Role Phone Elbert Ryan Primary Care [...] Orally Once a day Active Vitamin D3 9875299 UNIT/GM as directed Active Vitamin C 500 [...] W/U Status Risk Notes Problem Solitary sacroiliitis (460796984) Sacroiliitis, not elsewhere classified (M46.1) Active confirmed Problem Lumbosacral spondylosis without myelopathy (97406456) Spondylosis without myelopathy or radiculopathy, lumbar region (M47.816) Active confirmed Problem Cervical spondylosis without myelopathy (286931674) Other spondylosis, cervical region (M47.892) Active confirmed Problem Lumbar radiculopathy (855646147) Radiculopathy, lumbar region (M54.16) Active confirmed Problem Enthesopathy of hip region (68043499) Trochanteric bursitis, unspecified hip (M70.60) Active confirmed Problem 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 (908282130) exterminator helper termite (current) use of opiate analgesic (Z79.891) Active confirmed Plan Of Treatment No Information Insurance Providers Payer Name Payer Address Payer Phone Subscriber Number Group Number Insured Name Patient Relationship to Insured Coverage Start Date Coverage End Date PEEWEE Mcclain [address] [place] [address] [id number] 1 Tiara Tidwellh Self - patient is the insured 2021 Medical (General) History Medical History History ICD Code Arthritis diabetes high cholesterol migraine headaches thyroid problems Surgical History Surgery Date(Month/Year) section hysterectomy 1996 laparoscopy right knee 2015 right knee feathered acl 2015 Hospitalization History Reason Date(Month/Year) none recent
--- OUTSIDE RECORDS SUMMARY | 2025-06-06 12:42 | XMS_ITS | Patient Health Record ---
Author Organization [facility] [place] ([address]) Address [address] [place] [address] Care Team Providers Care Stone Setter Apprentice Name Role Phone Elizabeth Burns Primary Care Provider Za Brewster Unavailable [phone] Allergies Allergen (clinical drug ingredient) Drug/Non Drug [...] Status Risk Notes Problem Chronic allergic conjunctivitis (03335675) Other chronic allergic conjunctivitis (H10.45) Active confirmed Problem Allergic rhinitis caused by pollen (disorder) (48278274) Allergic rhinitis due to pollen (J30.1) Active confirmed Problem Allergic rhinitis (91457729) Other allergic rhinitis (J30.89) Active confirmed Problem Chronic rhinitis (35230288) Chronic rhinitis (J31.0) Active confirmed Problem Allergic rhiniti s due to animal (cat) (dog) hair and dander (J30.81) Active confirmed Plan Of Treatment No Information Insurance Providers Payer Name Payer Address Payer Phone Subscriber Number Group Number Insured Name Patient Relationship to Insured Coverage Start Date Coverage End Date [facility] [id number] [place] [address] [id number] Ashley Tidwell Self - patient is the insured Medical (General) History Medical History History ICD Code Fibromyalgia Anxiety Hyperthyroidism Neuropathy Surgical History Surgery Date(Month/Year) Endoscopy
--- OUTSIDE RECORDS SUMMARY | 2025-06-06 12:42 | XMS_ITS ---
Author Organization [facility] [place] ([address]) Address [address] [place] [address] Care Team Providers Care Cargo Inspector Name Role Phone Elizabeth Burns Primary Care Provider Unavaila araceli CabamZa Unavailable [phone] ZZ-Migration, Provider Unavailable Unavailab le Allergies Allergen (clinical drug ingredient) Drug/Non Drug Allergy documented on EMR Reaction Allergy Type Onset Date Status Steroids STEROIDS (uncoded) facial flushi ng and swelling Allergy Active aspirin Aspirin lip swelling Drug Allergy Acti ve oxycodone oxyCODONE migraines Drug Allergy Active REASON FOR VISIT [facility] Conversion Encounter Medications Medication SIG (Take, Route, [...] Active Encounters Encounter Location Date Provider Diagnosis [address] [address] 04/16/2024 Provider Brian Allergic rhinitis due to [...] * Tiara TELLEShDOB:[birth year] (59 yo F)Acc No.[id number]:04/16/2024 Patient: Ashley LUIS Provider: Janessa Tipton :1965 A ge:58 Y S ex:Female Date:04/16/2024 Address:[address] [place] [address], [id number] Pcp:Elizabeth Burns Subjective: * Chief Complaints: * [...] * Electronic signature of Lilliam JHAVERI-Migration on 06/06/2025 at 12:42 PM CDT Sign off status: Pending * Provider: Janessa rapp Migration Date: 04/16/2024 Generated for Venancio ruby/Shlomo/Adelita on: 06/06/2025 12:42 PM CDT
--- OUTSIDE RECORDS SUMMARY | 2025-06-06 12:42 | XMS_ITS | Encounter Summary ---
Author Organization [facility] Address [facility] [place] [address] Care Team Providers Care Mountain Guide Name Role Phone Elizabeth Burns [facility] Primary Care Provider [phone] Encounter Details Date Type Department Care Team (Late st Contact Info) Description 04/09/2025 Paras[place]et Message Enc [facility] [address] [place] [address] Elizabeth Burns [facility] [address] [place] [phone] Pain med Social History Tobacco Use Types [...] Sex Assigned at Female 12/05/2024 10:47 AM MARBLE MACHINE TENDER Legal Sex Female 10:22 PM MARBLE MACHINE TENDER Gender Identity Female 03/14/2025 3:45 PM CDT Sexual Orientation Not on file 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 of this encounter Plan of Treatment Upcoming Encounters Date Type Department Care Team (Late st Contact Info) Description 06/20/2025 3:20 PM CDT Allied Health/Nurse Visit [address] [place] [address] Elizabeth Burns FNP [address] [place] [address] 07/19/2025 10:40 AM CDT Office Visit [facility] [address] [phone] Alisia Rascon, CANDIS [address] [address] 07/21/2025 2:40 PM CDT Office Visit [address] [place] [address] Elizabeth Burns FNP [address] [facility] [place] [address] documented as of this encounter Visit Diagnoses Not on filedocumented in this encounter Care Teams Mountain Guide Relationship Specialty Start Date End Date Elizabeth Burns FNP [address] [place] [address] [place] [phone] PCP - General NURSE PRACTITIONER 11/03/18 documented as of this encounter
--- OUTSIDE RECORDS SUMMARY | 2025-06-06 12:42 | XMS_ITS | Encounter Summary ---
Author Organization [facility] Address [address] [place] [address] Care Team Providers Care Clipman Name Role Phone Elizabeth Burns [facility] Primary Care Provider [phone] Encounter Details Date Type Department Care Team (Latest Contact Info) Description 11/18/2024 VeryLastRoom Message [facility] [place] [address] [phone] [facility] Provider PAIN MANAGEMENT CLINIC Social History Tobacco [...] Sex Assigned at Female 12/05/2024 10:47 AM COST ANALYST Legal Sex Female 10:22 PM COST ANALYST Gender Identity Female 03/14/2025 3:45 PM CDT Sexual Orientation Not on file 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 of this encounter Plan of Treatment Upcoming Encounters Date Type Department Care Team (Late st Contact Info) Description 06/20/2025 3:20 PM CDT Allied Health/Nurse Visit [address] [place] [address] Elizabeth Burns FNP [address] [place] [address] 07/19/2025 10:40 AM CDT Office Visit [facility] [place] [address] [place] [phone] Alisia Rascon, CANDIS [address] [address] 07/21/2025 2:40 PM CDT Office Visit [address] [place] [address] Elizabeth Burns FNP [address] [place] [address] documented as of this encounter Visit Diagnoses Not on filedocumented in this encounter Additional Health Concerns Infection Onset Date Last Indicated Resolved Time COVID-19 Rule Out 12/05/2024 12/05/2024 12/05/2024 11:14 AM COST ANALYST Influenza - Seasonal 12/05/2024 12/05/2024 025 12:32 AM COST ANALYST documented as of this encounter Care Teams Clipman Relationship Specialty Start Date End Date Elizabeth Burns FNP [address] [place] [address] PCP - General NURSE PRACTITIONER 11/03/18 documented as of this encounter
--- OUTSIDE RECORDS SUMMARY | 2025-06-06 12:42 | XMS_ITS ---
Author Organization [facility] [place] ([address]) Address [address] [place] [address] Care Team Providers Care Supervisor Finishing Room Name Role Phone Elizabeth Burns Primary Care Provider Za Brewster Unavailable [phone] REASON FOR VISIT Asthma follow-up Encounters Encounter Location Date Provider Diagnosis [facility] [address] [place] [address] 04/27/2024 Za Farley Plan Of Treatment No Information Progress Notes * Tiara TELLEShDOB:[birth year] (59 yo F)Acc No.[id number]:04/27/2024 Asthma F/U Patient: Ashley LUIS Provider: Dominick Farley MD :1965 A ge:58 Y S ex:Female Date:04/27/2024 Address:[address] [facility] Pcp:Elizabeth Burns Subjective: * Chief Complaints: * 1 . Asthma follow-up. * Medical History: Objective: * Vitals: Assessment: Plan: * Treatment: * Billing Information: * Visit Code: * Procedure Codes: * Electronic signature of Krystyna Farley MD on 06/06/2025 at 12:42 PM CDT Sign off status: Pending * Provider: Dominick Farley MD Date: 0 04/27/2024 Generated for Venancio ruby/Shlomo/Rajanismitting on: 0 06/06/2025 12:42 PM CDT
--- OUTSIDE RECORDS SUMMARY | 2025-06-06 12:43 | XMS_ITS ---
Author Organization [facility] [place] ([address]) Address [address] [place] [address] Care Team Providers Care Business Planning Director Name Role Phone Elizabeth Burns Primary Care Provider Za Brewster Unavailable [phone] REASON FOR VISIT Asthma follow-up Encounters Encounter Location Date Provider Diagnosis [facility] [address] [place] [address] 04/06/2024 Za Farley Plan Of Treatment No Information Progress Notes * Tiara TELLEShDOB:[birth year] (59 yo F)Acc No.[id number]:04/06/2024 Asthma F/U Patient: Ashley LUIS Provider: Dominick Farley MD :1965 A ge:58 Y S ex:Female Date:04/06/2024 Address:[address] [facility] Pcp:Elizabeth Burns Subjective: * Chief Complaints: * 1 . Asthma follow-up. * Medical History: Objective: * Vitals: Assessment: Plan: * Treatment: * Billing Information: * Visit Code: * Procedure Codes: * Electronic signature of Krystyna Farley MD on 06/06/2025 at 12:42 PM CDT Sign off status: Pending * Provider: Dominick Farley MD Date: 0 04/06/2024 Generated for Venancio ruby/Shlomo/Rajanismitting on: 0 06/06/2025 12:42 PM CDT
--- OUTSIDE RECORDS SUMMARY | 2025-06-06 12:43 | XMS_ITS | Encounter Summary ---
Author Organization [facility] Address [facility] [place] [address] Care Team Providers Care Central Services Tech Name Role Phone Elizabeth BurnsP Primary Care Provider [phone] Reason for Referral * Surgical (Routine) - Closed Specialty Diagnoses / Procedures Referred By Panchito hook Referred To Contact Procedures Case request operating room: INJECTION EPIDURAL TRANSFORAMINAL L5-S1 Suzanna Guerrero NP [address] [facility] [address] [place] [address] Phone: tel: [phone] fax: Referral ID Status Reason Start Date Expiration Date Visits Re quested Visits Authorized [id number] Closed 05/31/2019 07/01/2020 1 1 Encounter Details Date Type Department Care Team (Late st Contact Info) Description 05/31/2019 Prep for Procedure [facility] [place], [place] [phone] Suzanna Guerrero NP 3 [facility] [address] [place] [phone] (Work) Social History Tobacco Use Types Packs/Day [...] Sex Assigned at Female 12/05/2024 10:47 AM DISABILITY LIAISON OFFICER Legal Sex Female 10:22 PM DISABILITY LIAISON OFFICER Gender Identity Female 03/14/2025 3:45 PM CDT Sexual Orientation Not on file 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 of this encounter Plan of Treatment Upcoming Encounters Date Type Department Care Team (Late st Contact Info) Description 06/20/2025 3:20 PM CDT Allied Health/Nurse Visit [address] [place] [address] Elizabeth Burns [address] [place] [address] 07/19/2025 10:40 AM CDT Office Visit [facility] [address] [phone] Alisia Rascon NP [address] [address] 07/21/2025 2:40 PM CDT Office Visit [address] [place] [address] Elizabeth Burns [address] [place] [address] Scheduled Orders Name Type Priority Associated Diagnoses Order Schedule Case request operating room: INJECTION EPIDURAL TRANSFORAMINAL L5-S1 Case Request Routine Once for 1 Occurrences starting 05/31/2019 until 05/31/2019 documented as of this encounter Visit Diagnoses Not on filedocumented in this encounter Additional Health Concerns Infection Onset Date Last Indicated Resolved Time COVID-19 Rule Out 11/20/2022 11/20/2022 11/20/2022 10:34 AM DISABILITY LIAISON OFFICER COVID-19 Rule Out 11/21/2022 11/21/2022 11/21/2022 12:44 PM DISABILITY LIAISON OFFICER COVID-19 Rule Out 01/23/2023 01/23/2023 01/23/2023 1:50 PM CDT COVID-19 Rule Out 01/25/2023 01/25/2023 01/25/2023 11:12 AM CDT COVID-19 Rule Out 09/17/2023 09/17/2023 09/17/2023 11:08 AM DISABILITY LIAISON OFFICER COVID-19 Rule Out 12/05/2024 12/05/2024 12/05/2024 11:14 AM DISABILITY LIAISON OFFICER Influenza - Seasonal 12/05/2024 12/05/2024 025 12:32 AM DISABILITY LIAISON OFFICER documented as of this encounter Care Teams Central Services Tech Relationship Specialty Start Date End Date Elizabeth Burns FNP [address] [place] [address] [place] [address] PCP - General NURSE PRACTITIONER 11/03/18 documented as of this encounter
--- OUTSIDE RECORDS SUMMARY | 2025-06-06 12:43 | XMS_ITS | Clinical Summary ---
Author Organization [facility] Address [facility] [place] [address] Care Team Providers Care Private Client Advisor Name Role Phone Elizabeth Loya [facility] Primary Care Provider [phone] Allergies Active Allergy Reactions Criticality Noted Date [...] as directed Orally Active Cholecalciferol (VITAMIN D3) 0617015 UNIT/GM Liquid see administration instructions. Active triamcinolone [...] Description 05/17/2025 11:20 AM CDT Office Visit [facility] [address] [phone] Elizabeth Loya FNP Schaefer, Jennifer, NP Follow Up 05/17/2025 MyChart Message Enc [address] [place] [address] Elizabeth Loya FNP Surgery 05/17/2025 Travel 04/27/[address] [place] [phone] Elizabeth Loya FNP Mammography Order 04/27/2025 MyChart Message Enc [address] [place], [place] [phone] Elizabeth Loya FNP Need a referral 04/20/2025 10:00 AM CDT Office Visit [address] [place] [address] Elizabeth Loya FNP Follow Up (Patient is here for a 1 month follow up. /Wants to discuss some things. ) 04/20/2025 Scan [facility] Scanned, Doc [facility] 04/20/2025 Travel 04/09/2025 MyChart Message Enc [address] [place] [phone] Elizabeth Loya FNP Pain med 03/24/[address] [place] [phone] Elizabeth Loya FNP Prior Authorization (PA request Trulance 30 mg tab) 03/19/2025 MyChart Message Enc [facility] [address] [facility] [place] [address] Elizabeth Loya FNP Medication 03/14/2025 3:40 PM CDT Office Visit [facility] [address] [facility] [place] [address] Elizabeth Loya FNP Medication Management (IBS acting up//Right ear pain//Joint pain//Needing some shots and med refills) 03/14/2025 Travel 03/14/2025 Results Follow-Up [facility] [address] [facility] [place] [address] Elizabeth Loya FNP THYROID STIM HORMONE TSH 03/13/2025 6:58 AM CDT - 03/13/2025 11:59 PM CDT Hospital Encounter [facility] [address] [address] Elizabeth Loya FNP Discharge Disposition: Home or Self Care (Routine Discharge) 03/13/2025 Travel 03/06/2025 Scan [facility] Scanned, Doc Med Group from Last 3 Months Immunizations Immunization Administration [...] Sex Assigned at Female 12/05/2024 10:47 AM CIRCULAR SAW EDGE FUSER Legal Sex Female 10:22 PM CIRCULAR SAW EDGE FUSER Gender Identity Female 03/14/2025 3:45 PM CDT [...] 06/20/2025 3:20 PM CDT Allied Health/Nurse Visit [facility] [address] [place] [phone] Elizabeth Loya FNP [facility] CHATA Duncan [phone] 07/19/2025 10:40 AM CDT Office Visit [facility] [address] [phone] Alisia Rsacon, CANDIS 3 [facility] [address] [place] [address] 07/21/2025 2:40 PM CDT Office Visit [facility] [address] [place] [address] Elizabeth Loya, [facility] [address] [place] [address] Health Maintenance Due Date Last Done Comments [...] 12/23/1995 Hepatitis C Completed 01/18/2024 PHQ-2 (Physician [place]) Completed 05/17/2025 Meningococcal B Vaccine Aged Out [...] TSH Routine 03/13/2025 7:05 AM CDT Hypothyroidism MG SCREENING W DENA GLENROY DIGI Routine 05/27/2024 3:03 PM CDT Screening mammogram for breast cancer HEPATITIS C ANTIBODY Routine 01/18/2024 3:30 PM CDT Neuropathy Fatigue Arthritis Myalgia Hypomagnesemia Iron deficiency anemia, unspecified Encounter for therapeutic drug monitoring Lupus Screening for viral disease RA (rheumatoid arthritis) Sjogren's syndrome COLOGUARD (EXACT SCIENCE) Routine 04/02/2023 11:31 AM CDT Screening for colon cancer from Last 3 Months or Most Recently Relevant to Health Maintenance Results * (ABNORMAL) THYROID STIM HORMONE TSH (03/13/2025 7:05 AM CDT) TSH 0.168(L) 0.358 - 3.74 uIU/ML 03/13/2025 10:33 AM CDT [facility] Comment: HIGH DOSES OF BIOTIN MAY INTERFERE WITH THIS TEST RESULT. CORRELATION TO CLINICAL HISTORY AND PRESENTATION RECOMMENDED. 03/13/2025 7:05 AM CDT Elizabeth Loya [facility] Final Res ult [facility] [address] [place] [address], * MG SCREENING W DENA GLENROY DIGI (05/27/2024 3:03 PM CDT) Anatomical Region Laterality Modality Breast Bilateral Mammography 06/10/2024 4:43 PM CDT Impressions 06/10/2024 4:48 PM CDT ===== IMPRESSION: ===== 1. Stable mammographic appearance with no new findings to suggest malignancy in either breast. Assessment: ACR BI-RADS 2 - BENIGN FINDING(S) Recommendation: 1:Routine Screening Bilateral Comments: Ordered By: ELIZABETH LOYA Interpreted By: Jerrell Crandall 06/10/2024 4:43 PM Narrative 06/10/2024 4:48 PM [...] either breast to suggest malignancy. Elizabeth Loya CONCRETE VIBRATOR OPERATOR MAMMO Final Res ult * HEPATITIS C ANTIBODY (01/18/2024 3:30 PM CDT) HEPATITIS C AB NON-REACTI VE NON-REACTI VE 01/18/2024 8:55 PM CDT [facility] 01/18/2024 3:30 PM CDT us Liat Ramos MD LABORATORY Final Result [facility] [address] [place] [address], * COLOGUARD (EXACT SCIENCE) (04/02/2023 11:31 AM CDT) COLOGUARD RESULT Negative Negative [facility] (CLIA #:[id number]) Comment: NEGATIVE TEST RESULT. A negative Cologuard [...] (Inez Conroy al, N Engl J Med 2014;370(14):7697-5349) The normal value (reference range) for this assay is negative. COLOGUARD RE-SCREENING RECOMMENDATION: Periodic colorectal cancer screening is an important part of preventive healthcare for asymptomatic individuals at average risk for colorectal cancer. Following a negative Cologuard result, the [place] Cancer Society and U.S. Multi-Society Task Force screening guidelines recommend a Cologuard re-screening interval of 3 years. References: [place] Cancer Society Guideline for Colorectal Cancer Screening: https://www.cancer.org/cancer/llugg-njwagg-frpvqy/onxnaioiw-wcdxcyeek-mjiijch/ac s-rec ommendations.html.; Shahbaz DK, [place] HUNT, Gwyn TanK, Colorectal Cancer Screening: Recommendations for Physicians and Patients from the U.S. Multi-Society Task Force on Colorectal Cancer Screening , Am J Gastroenterology 2017; 112:8848-7992. TEST DESCRIPTION: Composite algorithmic analysis of stool [...] were screened with both Cologuard and colonoscopy. (Imperiale T. et al, N Engl J Med 2014;370(14):5502-9296.) Cologuard may produce a false negative or false positive result (no colorectal cancer or precancerous polyp present at colonoscopy follow up). A negative Cologuard test result does not guarantee the absence of CRC or advanced adenoma (pre-cancer). The current Cologuard screening interval is every 3 years. ([place] Cancer Society and U.S. Multi-Society Task Force). Cologuard performance data in a 10,000 patient pivotal study using colonoscopy as the reference method can be accessed at the following location: www.Noosh.com/results. Additional description of the Cologuard test process, warnings and precautions can be found at www.cologuard.com. STOOL STOOL SPECIMEN / Unknown 04/02/2023 11:31 AM CDT 04/04/2023 6:42 PM CDT Elizabeth Loya CONCRETE VIBRATOR OPERATOR BODY FLUIDS AND STOOLS OR DERABLES Final Result [facility] ([facility]) [address] [place] [address], [facility] (CLIA #:[id number]) [address] [place] [address] from Last 3 Months or Most Recently Relevant to Health Maintenance Insurance Advance Directives Documents on File Type Date Recorded Patient Framer Expl anation Legal Documents 09/29/2023 2:49 PM Care Teams Private Client Advisor Relationship Specialty Start Date End Date Elizabeth Loya FNP [address] [place] [address] [place] [address] PCP - General NURSE PRACTITIONER 11/03/18
--- OUTSIDE RECORDS SUMMARY | 2025-06-06 12:43 | XMS_ITS | Encounter Summary ---
Author Organization [facility] Address [facility] [place] [address] Care Team Providers Care Burglar Alarm Assembler Name Role Phone Elizabeth Burns [facility] Primary Care Provider [phone] Encounter Details Date Type Department Care Team (Late st Contact Info) Description 01/20/2024 Marketot Message Enc [facility] [address] [place] [address] Elizabeth Burns [facility] [address] [place], [place] [phone] Blood test Social History Tobacco Use Types [...] Sex Assigned at Female 12/05/2024 10:47 AM NIGHT CLERK Legal Sex Female 10:22 PM NIGHT CLERK Gender Identity Female 03/14/2025 3:45 PM CDT Sexual Orientation Not on file 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 of this encounter Plan of Treatment Upcoming Encounters Date Type Department Care Team (Late st Contact Info) Description 06/20/2025 3:20 PM CDT Allied Health/Nurse Visit [facility] [address] [place] [address] Elizabeth [place] FNP [address] [place] [address] 07/19/2025 10:40 AM CDT Office Visit [facility] [address] [phone] Alisia Rascon, CANDIS [address] [facility] [address] [place] [address] 07/21/2025 2:40 PM CDT Office Visit [facility] [address] [facility] [place] [address] Elizabeth [place] FNP [address] [place] [address] documented as of this encounter Visit Diagnoses Not on filedocumented in this encounter Additional Health Concerns Infection Onset Date Last Indicated Resolved Time COVID-19 Rule Out 12/05/2024 12/05/2024 12/05/2024 11:14 AM NIGHT CLERK Influenza - Seasonal 12/05/2024 12/05/2024 025 12:32 AM NIGHT CLERK documented as of this encounter Care Teams Burglar Alarm Assembler Relationship Specialty Start Date End Date Elizabeth [place] FNP [address] [place] [address] PCP - General NURSE PRACTITIONER 11/03/18 documented as of this encounter
== END 2025-06-06 12:39 | disposition home or self-care (01) ==
PROVIDERS: PCP Registered Nurse; Visit Provider Neurological Surgery
DX: M54.16 Radiculopathy, lumbar region (principal)
CPT/HCPCS: 72100

== ENCOUNTER 2025-07-07 09:23 | Outpatient (CLI) | payer BC, SELFPAY ==
--- OUTSIDE RECORDS SUMMARY | 2024-02-24 12:30 | XMS_ITS ---
Author Organization [facility] [place] ([address]) Address [address] [place] [address] Care Team Providers Care Archivist Economic History Name Role Phone Elizabeth Burns Primary Care Provider Za Brewster Unavailable [phone] REASON FOR VISIT Asthma follow-up Encounters Encounter Location Date Provider Diagnosis [facility] [address] [place] [address] 02/24/2024 Za Farley Plan Of Treatment No Information Progress Notes * Tiara TELLEShDOB:[birth year] (59 yo F)Acc No.[id number]:02/24/2024 Asthma F/U Patient: Ashley LUIS Provider: Dominick Farley MD :1965 A ge:58 Y S ex:Female Date:02/24/2024 Address:[address] [facility] Pcp:Elizabeth Burns Subjective: * Chief Complaints: * 1 . Asthma follow-up. * Medical History: Objective: * Vitals: Assessment: Plan: * Treatment: * Billing Information: * Visit Code: * Procedure Codes: * Electronic signature of Krystyna Farley MD on 07/07/2025 at 09:29 AM CDT Sign off status: Pending * Provider: Dominick Farley MD Date: 0 02/24/2024 Generated for Venancio ruby/Shlomo/Rajanismitting on: 0 07/07/2025 09:29 AM CDT
--- OUTSIDE RECORDS SUMMARY | 2024-03-16 12:30 | XMS_ITS ---
Author Organization [facility] ([phone]) Address [address] [facility] [address] [place] [address] Care Team Providers Care Physical Scientist Name Role Phone Elizabeth Burns Primary Care Provider Ronnie CabamZa Unavailable [phone] REASON FOR VISIT Chronic upper airway symptoms concerning for uncontrolled atopic disease, Chronic lower airways symptoms concerning for possible asthma Medications Medication SIG (Take, Route, Frequency, Duration) Notes Start Date End Date Status MELOXICAM 15 mg 1 tab(s) orally once a day Active PROAIR HFA 90 mcg/inh 2 puff(s) inhaled every 6 hours Active OXYBUTYNIN 5 mg 1 tab(s) orally 3 ti mes a day Active OMEPRAZOLE 40 mg 1 cap(s) orally once a day Active SUMATRIPTAN 50 mg 1 tab(s) orally once Active ARNUITY ELLIPTA furoate 100 mcg 1 puff(s) inhaled every 24 hours; Duration: 30 days Active AZELASTINE HYDROCHLORIDE NASAL 137 mcg/inh 2 spray(s) intranasally 2 times a day; Duration: 30 days Active LORATADINE 10 mg 1 tab(s) orally once a day Active METFORMIN 500 mg 1 tab(s) orally 2 ti mes a day Active LEVOCETIRIZINE DIHYDROCHLORIDE 5 mg 1 tab(s) orally once a day (in the evening); Duration: 30 days Active LAMOTRIGINE 25 mg 1 tab(s) orally 2 ti mes a day Active MILNACIPRAN 25 mg 1 tab(s) orally 2 ti mes a day Active ATORVASTATIN 20 mg 1 tab(s) orally once a day Active LEVOTHYROXINE 137 mcg (0.137 mg) 1 tab(s) orally once a day Active Encounters Encounter Location Date Provider Diagnosis [facility] [address] [id number] 03/16/2024 Za Farley Allergic rhinitis du e to pollen J30.1 ; Cough, unspecified R05.9 ; Allergic rhinitis due to animal (cat) (dog) hair and dander J30.81 ; Other allergic rhinitis J30.89 and Other chronic allergic conjunctivitis H10.45 Assessments Encounter Date Diagnosis (ICD Code) Assessment Notes Treatment Notes Treatment Clinical Notes Section Notes 03/16/2024 Allergic rhinitis due to pollen (ICD-10 - J30.1) Given the history and symptoms, skin testing was performed to common aeroallergens to determine atopic status. Ashley clearly suffers from atopic disease based upon our skin testing and clinical history. Accordingly, we have introduced a new, aggressive medication regimen, discussed nasal washes and allergy-specific avoidance measures. We also discussed adjunctive therapies including subcutaneous, specific allergen immunotherapy as relates to the treatment and prevention of atopic disease. She is currently considering the risks, benefits and alternatives to this care. Risks: bleeding, infection, allergic reaction, anaphylaxis; Benefits: reduced need for medications, improved symptoms, disease modification. Alternatives: watch/wait, change medication regimen, improve allergy avoidance measures. Follow-up in 1 month for interval evaluation and management 03/16/2024 Cough, unspecified (ICD-10 - R05.9) Due to insurance, holding on spirometry today. Start a trial of Arnuity and prn albuterol. F/u in 1 month and perform spirometry 03/16/2024 Allergic rhinitis due to animal (cat) (dog) hair and dander (ICD-10 - J30.81) Follow allergen avoidance, meds and consider SCIT as an adjunctive treatment to current regimen 03/16/2024 Other allergic rhinitis (ICD-10 - J30.89) Follow allergen avoidance, meds and consider SCIT as an adjunctive treatment to current regimen 03/16/2024 Other chronic allergic conjunctivitis (ICD-10 - H10.45) Given ocular signs and symptoms I encouraged allergy avoidance measures and meds as above. If symptoms persist, consider adding additional medications including intraocular antihistamine/mas t cell stabilizer, PRN and consider SCIT as an adjunctive measure Plan Of Treatment Medication Medication Name Sig Start Date Stop Date Notes ARNUITY ELLIPTA furoate 100 mcg 1 puff(s ) inhaled every 24 hours; Duration: 30 days AZELASTINE HYDROCHLORIDE RIKI AL 137 mcg/inh 2 spray(s) intranasally 2 times a day; Duration: 30 days LEVOCETIRIZINE DIHYDROCHLORI DE 5 mg 1 tab(s) orally once a day (in the evening); Duration: 30 days Treatment Notes Assessment Notes Allergic rhinitis due to pollen Given th e history and symptoms, skin testing was performed to common aeroallergens to determine atopic status. Ashley clearly suffers from atopic disease based upon our skin testing and clinical history. Accordingly, we have introduced a new, aggressive medication regimen, discussed nasal washes and allergy-specific avoidance measures. We also discussed adjunctive therapies including subcutaneous, specific allergen immunotherapy as relates to the treatment and prevention of atopic disease. She is currently considering the risks, benefits and alternatives to this care. Risks: bleeding, infection, allergic reaction, anaphylaxis; Benefits: reduced need for medications, improved symptoms, disease modification. Alternatives: watch/wait, change medication regimen, improve allergy avoidance measures. Follow-up in 1 month for interval evaluation and management Cough, unspecified Due to insurance, ho lding on spirometry today. Start a trial of Arnuity and prn albuterol. F/u in 1 month and perform spirometry Allergic rhinitis due to ani mal (cat) (dog) hair and dander Follow allergen avoidance, meds and consider SCIT as an adjunctive treatment to current regimen Other allergic rhinitis Follow allergen avoidance, meds and consider SCIT as an adjunctive treatment to current regimen Other chronic allergic conjunctivitis Gi katalina ocular signs and symptoms I encouraged allergy avoidance measures and meds as above. If symptoms persist, consider adding additional medications including intraocular antihistamine/mast cell stabilizer, PRN and consider SCIT as an adjunctive measure Next Appt Details Follow Up: 4 Weeks, Reason: Spirometry/Flow Volume Loop Progress Notes * Tiara TELLEShDOB:[birth year] (59 yo F)Acc No.[id number]:03/16/2024 Asthma F/U Patient: Ashley LUIS Provider: Dominick Farley MD :[id number] A ge:58 Y S ex:Female Date:03/16/2024 Address:[address] [place] [address] [id number] Pcp:Elizabeth Burns Subjective: * Chief Complaints: * 1 . Chronic upper airway symptoms concerning for uncontrolled atopic disease. 2. Chronic lower airways symptoms concerning for possible asthma. * HPI: * Introduction: HPI: Calvin Telles, a 58 year old with allergic rhinitis, GERD, and HTN presenting for evaluation of cough and rhinitis. S he moved to [place] November 2022 from [place]. She lived in [place] from 2016- 2022 and previously lived in [place]. Since moving to [place], she reports nasal congestion, rhinorrhea, facial pressure and hoarse voice. No decrease in sense of smell. She also reports coughing and shortness of breath. Her eyes are dry and often itch. N o prior history of asthma. She started albuterol earlier this year due to coughing and shortness of breath with improvement in above symptoms. She has not tried other inhalers. She was treated with antibiotics twice in the last year for sinusitis. She is taking Flonase 2 sprays and Claritin daily without improvement in above symptoms. S kin testing was performed in [place] around 2014 and received immunotherapy. She discontinued SCIT about 2 years later after moving to [place]. She is interested in restarting immunotherapy. S he denies a history of physician-diagnosed recurrent sinusitis or otitis media, recurrent pneumonia, asthma/RAD, eczema, food allergies, urticaria/angioedema, medication allergies, contact dermatitis, latex allergy, eosinophilic esophagitis or stinging insect hypersensitivity, . * Allergic Rhinoconjunctivitis: Allergic rhinitis D o you have or suspect you have allergic rhinitis (itchy eyes, sneezing, congestion or runny nose triggered by allergies)? Y es W hich areas and what symptoms are involved? Please fill out each section below as needed. e yes,ears,cough,nose,sore throat,headache,sinuses W hich of the following trigger your allergic rhinitis symptoms? t ree pollen,cold air,sinus infections,foods,damp or musty areas,spring (season),fall (season) D o you have any of the following other symptoms associated with your allergic rhinitis? r estless sleep,montessori program director headaches Eyes S pecific affected area: b oth (bilateral) O ccurence? c ontinuous W hen does this mostly occur? a nytime S ymptoms: i tching,watering,sensitive to light,swelling of the lids E ffective treatments: O TC vasocontrictors (Visine),oral antihistamines (Zyrtec or Darleen or Claritin) Ears S pecific affected area: r ight ear H ow often? i ntermittent S ymptoms: p lugged,ache,infections Nose S pecific area affected: b oth (bilateral) O ccurence? i ntermittent H ow frequent? d aily W hen does this mostly occur? a nytime S ymptoms? i tching,congestion,sneezing jags,loss of smell,sinus infection,awaken very congested in the a.m. E ffective treatments? o ral antihistamines (Zyrtec or Darleen or Claritin),nasal spray decongestants (Afrin),nasal steroid sprays (Flonase or Nasonex or Veramyst) Sinuses D o you have sinus pain? Y es H ave you lost sense of taste? Y es W here? c enter of forehead above eyes (frontal),over nasal bridge between the eyes (ethmoid) H ave you been treated with antibiotics for sinusitis? Y es W hich antibiotics? a moxicillin-clavulanic acid (Augmentin) H ow often in the past year? o nce W hat is the longest duration of antibiotics prescribed and completed? 6 -10 days H ave any of the following treatments improved your sinus symptoms? n o treatment to date H ave you ever had a CT scan or xray? N o H ave you ever undergone sinus surgery? N o Sore Throat O ccurence? i ntermittent H ow frequent? w eekly W hen does this usually occur? a nytime E ffective treatments? n gonzalo steroid sprays (Flonase or Nasonex or Veramyst) Cough F requency: i nfrequent I s cough more bothersome during night? N o I s phlegm produced? N o E ffective treatments? n gonzalo spray steroid (Flonase or Nasonex) Headache S pecific area(s) affected? c enter forehead (frontal),over nose between eyes (ethmoid),back area of the head,right side of head (holiness) O ccurence? i ntermittent H ow frequent? i nfrequent W hat time of day does this mostly occur? a nytime * Asthma: Cough D o you have a recurrent cough? Y es A pproximately, when did your cough start??11/21/2021 H ow often do you cough? i nfrequent W hat triggers your cough? t ree pollen,weed pollen,cold air,sinus infections,weather changes,damp or musty areas,cleansers,other foods,spring (season),fall (season),air conditioning W hich treatments have been effective for your cough? O TC cough medicine (Delsym or Robitussin),rescue inhaler (ProAir or Proventil or Ventolin or Xopenex) I s your cough more bothersome at night? N o I s sputum produced? N o Wheezing D o you have recurrent wheezing or a history of wheezing sometime in your life? N o D id you have symptoms of asthma as a child??No D id you have frequent respiratory infections as a child? N o W ere you ever hospitalized in the first 12 months of life for a respiratory infection in childhood? N o D o you still have wheezing? N o I s your wheezing changing? s asmita L ist months when wheezing is worse: N ovember W hat triggers your wheezing? t ree pollen,grass pollen,weed pollen,cold air,sinus infections,bronchitis,laughter,cigarette smoke,mold,damp or musty areas,spring (season),fall (season) D o you take an inhaled, rescue bronchodilator medication? Y es N asmita: P roAir I s your bronchodilator used daily? N o H ow often? e very other week W hen was your last dose of an inhaled bronchodilator? t his week H ave you taken oral steroids (Prednisone or Medrol) in the past? N o Physical Performance H ow many blocks can you walk? (Enter 99 for unlimited) 2 H ow many flights of stairs can you climb without stopping? (Enter 99 for unlimited) 1 I f there are limitations, what symptoms limit further activity? c ough,shortness of breath,fatigue,light-headedness D o you have any of the following additional problems? h eadaches in the morning Effective treatments for cough and or wheezing O TC cough medicine D elsym P rescription cough medicine: Chelo givens inhaler or nebulizer treatment: P roAir Vinay ntireflux medication: o meprazole (Prilosec) * Infections: Vaccination History F or children, are childhood vaccines up to date: Y es H ave you ever had a flu shot? Y es D ate of last flu shot? 1 H ave you ever had a pneumococcal vaccine ([id number])? N o H ave you ever had a tetanus vaccine ([id number]-Ugrk-So)? Y es D ate of last tetanus vaccine? 1 D id it contain pertussis as well? N o Ear Infections D o you have frequent ear infections? N o Sinusitis (Sinus infections) D o you have frequent episodes of sinusitis??Yes H ow many episodes in your entire life? 1 5 H ow many episodes over the past 12 months??1 H ave you been treated with antibiotics for sinusitis? N o H ave you been seen by an medical laboratory technologist or business solutions analyst to evaluate your immune system function for recurrent sinus infections? N o Sinus Symptoms and Surgery D o you have chronic or recurrent sinus symptoms? N o D o you have sinus pain? Y es D o you have a loss of sense of taste? Y es H ave you used any of the following treatments for your sinuses? n gonzalo spray decongestants,oral antihistamines W hich provided benefit? n gonzalo spray decongestants H ave you ever had a sinus CT or X-Ray? N o H ave your ever undergone sinus surgery? N o Bronchitis History D o you get frequent bronchitis? N o Pneumonia History H ave you ever had pneumonia or recurrent pneumonia? N o Skin and Other Infections D o you get frequent skin infections (cellulitis)? N o D o you get any other frequent infections??No * Other Rash and Contact Dermatitis: Other rashes and contact dermatitis H ave you ever had any other form of rash or contact dermatitis? N o * Atopic dermatitis: Atopic dermatitis - Eczema D o you have chronic or recurrent atopic dermatitis or eczema? N o * Urticaria: Urticaria (hives) D o you have recurrent hives? N o * Medication allergy: Medication Allergy D o you feel you are allergic to any medications? Y es W hat type of medication? o ther (class not listed above) H ow was the medication administered? o ral W hat was the medication administered for??sinus infection W hat symptom(s) did the medication cause??local swelling W hen did the reaction first occur? 1 11/02/2020 W hen did the reaction last occur? 1 I f antibiotic, what type: s ulfa I f analgesic, what type: o pioid H ave you been evaluated by an medical laboratory technologist previously for possible drug allergy? N o * Stinging Insects: Insect Reaction(s) H ave you ever experienced a stinging insect reaction? Y es W hat type of stinging insect? w asp W as the reaction: s ystemic (whole body symptoms),swelling away from where the sting occurred W hat symptoms were experienced? n ausea W ere you taken to the ER for evaluation? N o W hat treatments improved your symptoms? o ther H ave you been previously prescribed an epinephrine autoinjector? Y es D o you carry self-injectable epinephrine (e.g. EpiPen, Auvi-Q)? N o H ave you previously seen an medical laboratory technologist for evaluation of possible stinging insect allergy? N o H ave you been treated for your stinging insect reaction with immunotherapy? N o * Prior Evaluations and Treatments: Prior evaluations and treatments H ave you been evaluated by another physician for allergic rhinitis, cough, wheezing, asthma, urticaria, angioedema, atopic dermatitis or eczema??Yes W hat type(s) of of provider(s)? A llergist H ave you undergone testing for any aforementioned conditions or symptoms? Y es P erformed by: A llergist T ype of test: s kin test - airborne allergens H ow long ago: 5 -10 years ago H ave you ever been on allergy immunotherapy??Yes A pproximately, when was allergy immunotherapy started? 0 06/02/2014 A pproximately, when was your last dose of allergy immunotherapy? 1 12/03/2016 F orm of allergen immunotherapy? s ubcutaneous immunotherapy (shots) D o you feel the allergy immunotherapy was beneficial? Y es A re you still on immunotherapy? N o A pproximately, when was immunotherapy stopped? 1 12/03/2016 H ow long did you receive allergen immunotherapy? 3 -5 years R easons why allergy immunotherapy was discontinued? r elocated H ave you ever passed out during a blood draw, shot or vaccination? N o Last dose of antihistamine: l oratadine (Claritin) 1 H as your antihistamine been effective in controlling any of your symptoms? N o D o you take any other psychiatric medication??No * Food allergy: Food Allergy D o you currently have or have you ever had any proven or suspected food allergies? Y es W hat food(s)? m ilk,cashew,pork,strawberry,watermelon,cantaloupe W hat symptoms do you experience when foods are ingested? t ingling mouth or tongue or lips,adverse effect not listed,diarrhea H ow quickly do symptoms come on after food ingestion? a few minutes,within 20 minutes H ave you ever been hospitalized or treated urgently for symptoms of a severe allergic reaction (anaphylaxis)? Y es W as epinephrine administered? N o D o you carry self-injectable epinephrine for your prior reaction(s)? N o H ave you previously seen an medical laboratory technologist for evaluation of possible food allergy? N o * Eosinophilic GI: Eosinophilic Gastrointestinal Disease D o you have difficulty swallowing foods or have you previously needed to have your esophagus dilated for food impaction or have you been diagnosed with eosinophilic gastrointestinal disease? Y es W hat part of the GI tract is involved? e sophagus W hat symptoms have been caused by your eosinophilic GI disease? d ifficulty swallowing liquids,difficulty swallowing solids,constipation W hen did symptoms start? 5 -10 years ago W as endoscopy performed to verify the diagnosis? Y es W hat tests were performed? U pper endoscopy (EGD),Dilation of esophagus H ave you ever been evaluated by an medical laboratory technologist for possible allergies related to your eosinophilic disease? N o * Angioedema: Angioedema (swelling) D o you have recurrent swelling (angioedema)??No * ROS: A LLERGY: Positive p er the HPI and history, otherwise unremarkable.?runny nose Y es. s cratchy throat Y es. i tchy eyes Y es. e ar fullness?Yes. s inus congestion Y es. S PECIAL SENSES: Positve for n one. c ataracts Y es. g laucoma?No. l oss of hearing Y es. i tching in ears Y es. r inging in ears N o.?loss of balance N o. l oss of smell Y es. d ry eyes Y es. e xcessive tearing N o. i tching eyes Y es. l oss of taste Y es. c onjunctivitis N o.?ear infections Y es. C ONSTITUTIONAL: weight gain N o. l oss of appetite Y es. f ever?No. w eakness Y es. w eight loss N o. f atigue Y es. n ight sweats?No. P ositive for n one. E NT: cold Y es. c ough Y es. e pistaxis N o.?hearing loss Y es. c hange in voice Y es. s ore throat Y es. r inging in ears N o. P ositive p er the HPI and history, otherwise unremarkable. R ESPIRATORY: shortness of breath Y es. c hest pain N o. c hest congestion Y es. c ough Y es. P ositive p er the HPI and history, otherwise unremakable. O PHTHALMOLOGY: diminished vision Y es. e ye irritation Y es. d rainage from eyes N o. b lurring of vision N o. s easonal eye sx Y es. P ositive for p er the HPI and history, otherwise unremarkable. i tching Y es. s ensitivity to light Y es. d ischarge N o. w atering Y es. s welling of the eyelids?Yes. r edness Y es. E NDOCRINOLOGY: fatigue Y es. p olydipsia Y es. p olyuria Y es. w eight loss N o. s leep disturbance N o. c old intolerance Y es. h eat intolerance N o. d iabetes Y es. P ositive for n one. C ARDIOLOGY: chest pain N o. p alpitations N o. l eg edema?No. d izziness N o. s hortness of breath Y es. P ositive for n one. G ASTROENTEROLOGY: dysphagia Y es. a bdominal pain N o. n ausea?Yes. v omiting N o. c onstipation Y es. d iarrhea N o. b lood in stool N o. i ndigestion Y es. h emorrhoids N o. P ositive for n one. ? U ROLOGY: difficulty urinating N o. b lood in urine N o. f requent urination Y es. u rinary incontinence Y es. r ecurrent UTI N o. P ositive for n one. D ERMATOLOGY: rash N o. m ole Y es. l umps N o. d ry or sensitive skin Y es. h buzz (urticaria) N o. a cne N o. s kin cancer N o. P ositive for p er the HPI and history, otherwise unremakable. N EUROLOGY: headache Y es. t ingling numbness Y es. s eizures N o. i nsomnia N o. m eduardo loss Y es. d izziness Y es. g ait abnormality N o. P ositive for n one. H EMATOLOGY/LYMPH: Positive for n one. M USCULOSKELETAL: joint swelling N o. j oint pain Y es. l eg cramps Y es. j oint stiffness Y es. s ciatica Y es. o steoporosis Y es. f racture N o. c arpal tunnel Y es. g out N o. P ositive for n one. P SYCHOLOGY: high stress level Y es. d epression Y es. s leep disturbances N o. s uicidal ideation N o. e ating disorder N o. m ental or physical abuse Y es. a nxiety Y es. P ositive for n one. F EMALE REPRODUCTIVE: heavy periods N o. h ot flashes N o. a bnormal vaginal discharge N o. s exually active N o. i nfertility N o. f requent yeat infections N o. p elvic pain N o. b reast pain N o. n ipple discharge N o. A re you ? N o. A re you planning on a future pregancy? N o. A ll other review of systems per the HPI and history, otherwise unremarkable. * Medical History: * Medications: T aking ARNUITY ELLIPTA furoate 100 mcg powder 1 puff(s) inhaled every 24 hours , Taking AZELASTINE HYDROCHLORIDE NASAL 137 mcg/inh spray 2 spray(s) intranasally 2 times a day , Taking LEVOCETIRIZINE DIHYDROCHLORIDE 5 mg tablet 1 tab(s) orally once a day (in the evening) , Taking PROAIR HFA 90 mcg/inh aerosol 2 puff(s) inhaled every 6 hours , Taking OXYBUTYNIN 5 mg tablet 1 tab(s) orally 3 times a day , Taking MELOXICAM 15 mg tablet 1 tab(s) orally once a day , Taking OMEPRAZOLE 40 mg delayed release capsule 1 cap(s) orally once a day , Taking SUMATRIPTAN 50 mg tablet 1 tab(s) orally once , Taking ATORVASTATIN 20 mg tablet 1 tab(s) orally once a day , Taking LEVOTHYROXINE 137 mcg (0.137 mg) tablet 1 tab(s) orally once a day , Taking LAMOTRIGINE 25 mg tablet 1 tab(s) orally 2 times a day , Taking MILNACIPRAN 25 mg tablet 1 tab(s) orally 2 times a day , Taking LORATADINE 10 mg tablet 1 tab(s) orally once a day , Taking METFORMIN 500 mg tablet 1 tab(s) orally 2 times a day Objective: * Vitals: * Examination: G eneral examination: General appearance: p leasant, well-developed, well-nourished. HEENT: c onjunctiva are clear bilaterally, no tenderness to palpation of the sinuses, TM's without evidence of acute infection, turbinates 2+ swollen and pale inferiorly bilaterally, clear rhinorrhea is present, no polyps noted, no septal perforation, posterior oropharynx is clear, no exudates, no tongue swelling, and uvula is midline. Oral cavity: n ormal, no lesions. Neck, thyroid : s upple, non-tender, no anterior cervical lymphadenopathy. Breasts : n ot performed. Heart: R RR, S1-S2, no murmurs, no rubs, no gallops. Lungs: c lear to auscultation and percussion in all lung yu, no wheezes or crackles. Neurologic exam: u nremarkable. Skin: n ormal, no rash, dermatographism, urticaria, angioedema. Peripheral pulses: n ormal (2+) bilaterally. Back: n ormal. Extremities: n ormal ROM, no clubbing, no cyanosis, no edema. Genitalia: n ot performed. Assessment: * Assessment: 1. C ough, unspecified - R05.9 (Primary) 2 . A llergic rhinitis due to pollen - J30.1 3 . A llergic rhinitis due to animal (cat) (dog) hair and dander - J30.81 4 . O ther allergic rhinitis - J30.89 5 . O ther chronic allergic conjunctivitis - H10.45 Plan: * Treatment: 2. A llergic rhinitis due to pollen Start AZELASTINE HYDROCHLORIDE NASAL spray, 137 mcg/inh, 2 spray(s), intranasally, 2 times a day, 30 days, 1, Refills 1; S tart LEVOCETIRIZINE DIHYDROCHLORIDE tablet, 5 mg, 1 tab(s), orally, once a day (in the evening), 30 days, 30, Refills 1. Notes: Given the history and symptoms, skin testing was performed to common aeroallergens to determine atopic status. Ashley clearly suffers from atopic disease based upon our skin testing and clinical history. Accordingly, we have introduced a new, aggressive medication regimen, discussed nasal washes and allergy-specific avoidance measures. We also discussed adjunctive therapies including subcutaneous, specific allergen immunotherapy as relates to the treatment and prevention of atopic disease. She is currently considering the risks, benefits and alternatives to this care. Risks: bleeding, infection, allergic reaction, anaphylaxis; Benefits: reduced need for medications, improved symptoms, disease modification. Alternatives: watch/wait, change medication regimen, improve allergy avoidance measures. Follow-up in 1 month for interval evaluation and management 3. A llergic rhinitis due to animal (cat) (dog) hair and dander Notes: Follow allergen avoidance, meds and consider SCIT as an adjunctive treatment to current regimen 4. O ther allergic rhinitis Notes: Follow allergen avoidance, meds and consider SCIT as an adjunctive treatment to current regimen 5. O ther chronic allergic conjunctivitis Notes: Given ocular signs and symptoms I encouraged allergy avoidance measures and meds as above. If symptoms persist, consider adding additional medications including intraocular antihistamine/mast cell stabilizer, PRN and consider SCIT as an adjunctive measure * Procedure Codes: 9 5004 PRICK TESTS, Units: 72.00 , 68188 PT-FOCUSED [facility] RISK ASSMT, G8404 DOC MEDS VERIFIED W/PT OR RE, G8431 FLU IMMUNIZE ORDER/ADMIN * Preventive Medicine: Counseling: M edication instruction: W atch for side effects of prescribed medications, Nasal steroid/antihistamine instruction: avoid septum. E ducation: G ENERAL EDUCATION: Our staff spent an additional 30 minutes in direct contact with the patient educating them on their current diagnoses and proper treatment and prevention of symptoms and the proper use of medications. E ducation 2: A RC EDUCATION: Our staff discussed the appropriate allergen avoidance measures and medication utilization including upper airway hygiene with daily nasal washes given the patient's clinical status and diagnoses. SCIT EDUCATION: Discussed allergy immunotherapy including the relative risks, benefits and alternatives to this treatment as an adjunctive measure to current therapy, Allergy Immunotherapy: Risks: bleeding, infection, allergic reaction, anaphylaxis = severe allergic reaction that can cause ; Benefits: reduced need for medications, improved symptoms, disease modification. Alternatives: watch/wait, change medication regimen, improve allergy avoidance measures, Our staff discussed the warning signs of anaphylaxis and the indications to use self-injectable epinephrine and seek urgent or emergent care. P atient education material sent to portal? Y es * Follow Up: 4 Weeks (Reason: Spirometry/Flow Volume Loop) * Billing Information: * Visit Code: 49073 Office Visit, New Pt., Level 4. Modifiers: 25 * Procedure Codes: 98585 PRICK TESTS. Units: 72.00. 66186 PT-FOCUSED [facility] RISK ASSMT. G8427 DOC MEDS VERIFIED W/PT OR RE. G8482 FLU IMMUNIZE ORDER/ADMIN. * Electronic signature of Krystyna Farley MD on 07/07/2025 at 09:29 AM CDT Sign off status: Pending * Provider: Dominick Farley MD Date: 0 03/16/2024 Generated for Venancio ruby/Shlomo/eTbrendasmitting on: 0 07/07/2025 09:29 AM CDT History and Physical Notes * HPI (History of Present Illness) Category Sub-Category Detail Notes Category Not es *Introduction HPI: Ashley Telles, a 58 year old with allergic rhinitis, GERD, and HTN presenting for evaluation of cough and rhinitis. She moved to [place] November 2022 from [place]. She lived in [place] from [address]17-[address]4 and previously lived in [place]. Since moving to [place], she reports nasal congestion, rhinorrhea, facial pressure and hoarse voice. No decrease in sense of smell. She also reports coughing and shortness of breath. Her eyes are dry and often itch. No prior history of asthma. She started albuterol earlier this year due to coughing and shortness of breath with improvement in above symptoms. She has not tried other inhalers. She was treated with antibiotics twice in the last year for sinusitis. She is taking Flonase 2 sprays and Claritin daily without improvement in above symptoms. Skin testing was performed in [place] around 2014 and received immunotherapy. She discontinued SCIT about 2 years later after moving to [place]. She is interested in restarting immunotherapy. She denies a history of physician-diagnosed recurrent sinusitis or otitis media, recurrent pneumonia, asthma/RAD, eczema, food allergies, urticaria/angioedema, medication allergies, contact dermatitis, latex allergy, eosinophilic esophagitis or stinging insect hypersensitivity, *Allergic Rhinoconjunctivitis Eyes Sp ecific affected area:: both (bilateral) Occurence?: continuous When does this mostly occur?: anytime Symptoms:: itching,watering,sensitive to light,swelling of the lids Effective treatments:: OTC v asocontrictors (Visine),oral antihistamines (Zyrtec or Darleen or Claritin) Ears Specific affected area:: right e ar How often?: intermittent Symptoms:: plugged,ache,infections Cough Frequency:: infrequent Is cough more bothersome during night?: No Is phlegm produced?: No Effective treatments?: nasal spray stero id (Flonase or Nasonex) Nose Specific area affected:: both (b ilateral) Occurence?: intermittent How frequent?: daily When does this mostly occur?: anytime Symptoms?: itching,congestio n,sneezing jags,loss of smell,sinus infection,awaken very congested in the a.m. Effective treatments?: oral antihistamines (Zyrtec or Darleen or Claritin),nasal spray decongestants (Afrin),nasal steroid sprays (Flonase or Nasonex or Veramyst) Sore Throat Occurence?: intermittent How frequent?: weekly When does this usually occur?: anytime Effective treatments?: nasal steroid spr ays (Flonase or Nasonex or Veramyst) Headache Specific area(s) aff ected?: center forehead (frontal),over nose between eyes (ethmoid),back area of the head,right side of head (holiness) Occurence?: intermittent How frequent?: infrequent What time of day does this mostly occur? : anytime Sinuses Do you have sinus pain?: Yes Have you lost sense of taste?: Yes Where?: center of forehead above eyes (frontal),over nasal bridge between the eyes (ethmoid) Have you been treated with antibiotics f or sinusitis?: Yes Which antibiotics?: amoxicillin-clavulanic acid (Augmentin) How often in the past year?: once What is the longest duration of antibiotics prescribed and completed?: 6-10 days Have any of the following tr eatments improved your sinus symptoms?: no treatment to date Have you ever had a CT scan or xray?: No Have you ever undergone sinus surgery?: No Allergic rhinitis Do you have or suspe ct you have allergic rhinitis (itchy eyes, sneezing, congestion or runny nose triggered by allergies)?: Yes Which areas and what symptoms are involved? Please fill out each section below as needed.: eyes,ears,cough,nose,sore throat,headache,sinuses Which of the following trigger your allergic rhinitis symptoms?: tree pollen,cold air,sinus infections,foods,damp or musty areas,spring (season),fall (season) Do you have any of the following other symptoms associated with your allergic rhinitis?: restless sleep,montessori program director headaches *Asthma Cough Do you have a recurrent cough?: Yes Approximately, when did your cough start?: 11/21/2021 How often do you cough?: infrequent What triggers your cough?: tree pollen,weed pollen,cold air,sinus infections,weather changes,damp or musty areas,cleansers,other foods,spring (season),fall (season),air conditioning Which treatments have been effective for your cough?: OTC cough medicine (Delsym or Robitussin),rescue inhaler (ProAir or Proventil or Ventolin or Xopenex) Is your cough more bothersome at night?: No Is sputum produced?: No Effective treatments for cough and or wheezing O TC cough medicine: Delsym Prescription cough medicine:: Tessalon P erles Rescue inhaler or nebulizer treatment:: ProAir Antireflux medication:: omeprazole (Pril osec) Wheezing Do you have recurren t wheezing or a history of wheezing sometime in your life?: No Did you have symptoms of asthma as a chi ld?: No Did you have frequent respiratory infect ions as a child?: No Were you ever hospitalized i n the first 12 months of life for a respiratory infection in childhood?: No Do you still have wheezing?: No Is your wheezing changing?: same List months when wheezing is worse:: Nov ember What triggers your wheezing? : tree pollen,grass pollen,weed pollen,cold air,sinus infections,bronchitis,laughter,cigarette smoke,mold,damp or musty areas,spring (season),fall (season) Do you take an inhaled, rescue bronchodi lator medication?: Yes Name:: ProAir Is your bronchodilator used daily?: No How often?: every other week When was your last dose of an inhaled bronchodilator?: this week Have you taken oral steroids (Prednisone or Medrol) in the past?: No Physical Performance How many blocks can you wal k? (Enter 99 for unlimited): 2 How many flights of stairs c an you climb without stopping? (Enter 99 for unlimited): 1 If there are limitations, wh at symptoms limit further activity?: cough,shortness of breath,fatigue,light-headedness Do you have any of the following additio nal problems?: headaches in the morning *Infections Vaccination History For children , are childhood vaccines up to date:: Yes Have you ever had a flu shot?: Yes Date of last flu shot?: 08/02/2023 Have you ever had a pneumococcal vaccine (NJE-Widiyhs-Kgeyefyba)?: No Have you ever had a tetanus vaccine (DTa p-Tdap-Td)?: Yes Date of last tetanus vaccine?: 08/02/2017 Did it contain pertussis as well?: No Ear Infections Do you have frequent ear infecti ons?: No Sinusitis (Sinus infections) Do you have frequen t episodes of sinusitis?: Yes How many episodes in your entire life?: 15 How many episodes over the past 12 months?: 1 Have you been treated with antibiotics for sinusitis?: No Have you been seen by an medical laboratory technologist or business solutions analyst to evaluate your immune system function for recurrent sinus infections?: No Sinus Symptoms and Surgery Do you have chronic o r recurrent sinus symptoms?: No Do you have sinus pain?: Yes Do you have a loss of sense of taste?: Y es Have you used any of the fol lowing treatments for your sinuses?: nasal spray decongestants,oral antihistamines Which provided benefit?: nasal spray dec ongestants Have you ever had a sinus CT or X-Ray?: No Have your ever undergone sinus surgery?: No Bronchitis History Do you get frequent bronchiti s?: No Pneumonia History Have you ever had pneumonia or recurrent pneumonia?: No Skin and Other Infections Do you get frequent sk in infections (cellulitis)?: No Do you get any other frequent infections ?: No *Other Rash and Contact Dermatitis Other rashes and contact dermatitis Have you ever had any other form of rash or contact dermatitis?: No *Atopic dermatitis Atopic dermatitis - Eczema Do you have chronic or recurrent atopic dermatitis or eczema?: No *Urticaria Urticaria (hives) Do you have re current hives?: No *Medication allergy Medication Allergy Do you fe el you are allergic to any medications? : Yes What type of medication?: other (class not listed above) How was the medication administered?: oral What was the medication administered for?: sinus infection What symptom(s) did the medication cause?: local swelling When did the reaction first occur?: 09/02/2021 When did the reaction last occur?: 08/16/2023 If antibiotic, what type:: sulfa If analgesic, what type:: opioid Have you been evaluated by a n medical laboratory technologist previously for possible drug allergy?: No *Stinging Insects Insect Reaction(s) Have you ev er experienced a stinging insect reaction? : Yes What type of stinging insect?: wasp Was the reaction:: systemic (whole body symptoms),swelling away from where the sting occurred What symptoms were experienced?: nausea Were you taken to the ER for evaluation?: No What treatments improved your symptoms?: other Have you been previously prescribed an epinephrine autoinjector?: Yes Do you carry self-injectable epinephrine (e.g. EpiPen, Auvi-Q)?: No Have you previously seen an medical laboratory technologist for evaluation of possible stinging insect allergy?: No Have you been treated for your stinging insect reaction with immunotherapy?: No *Prior Evaluations and Treatments Prior evaluations and treatments Have you been evaluated by another physician for allergic rhinitis, cough, wheezing, asthma, urticaria, angioedema, atopic dermatitis or eczema?: Yes What type(s) of of provider(s)?: Supervisor Home Economics Have you undergone testing for any afore mentioned conditions or symptoms?: Yes Performed by:: Supervisor Home Economics Type of test:: skin test - airborne allergens How long ago:: 5-10 years ago Have you ever been on allergy immunother apy?: Yes Approximately, when was allergy immunotherapy started?: 06/02/2014 Approximately, when was your last dose of allergy immunotherapy?: 10/02/2017 Form of allergen immunotherapy?: subcutaneous immunotherapy (shots) Do you feel the allergy immunotherapy was beneficial?: Yes Are you still on immunotherapy?: No Approximately, when was immunotherapy stopped?: 10/02/2017 How long did you receive allergen immunotherapy?: 3-5 years Reasons why allergy immunotherapy was discontinued?: relocated Have you ever passed out during a blood draw, shot or vaccination?: No Last dose of antihistamine: loratadine (Claritin ): 11/01/2023 Has your antihistamine been effective in controlling any of your symptoms?: No Do you take any other psychiatric medica tion?: No *Food allergy Food Allergy Do you currently have or have you ever had any proven or suspected food allergies?: Yes What food(s)?: milk,cashew,pork,strawberry,watermelon,cantaloupe What symptoms do you experience when foods are ingested?: tingling mouth or tongue or lips,adverse effect not listed,diarrhea How quickly do symptoms come on after food ingestion?: a few minutes,within 20 minutes Have you ever been hospitalized or treated urgently for symptoms of a severe allergic reaction (anaphylaxis)?: Yes Was epinephrine administered?: No Do you carry self-injectable epinephrine for your prior reaction(s)?: No Have you previously seen an medical laboratory technologist for evaluation of possible food allergy?: No *Eosinophilic GI Eosinophilic Gastroi ntestinal Disease Do you have difficulty swallowing foods or have you previously needed to have your esophagus dilated for food impaction or have you been diagnosed with eosinophilic gastrointestinal disease?: Yes What part of the GI tract is involved?: esophagus What symptoms have been caused by your eosinophilic GI disease?: difficulty swallowing liquids,difficulty swallowing solids,constipation When did symptoms start?: 5-10 years ago Was endoscopy performed to verify the diagnosis?: Yes What tests were performed?: Upper endoscopy (EGD),Dilation of esophagus Have you ever been evaluated by an medical laboratory technologist for possible allergies related to your eosinophilic disease?: No *Angioedema Angioedema (swelling) Do you hav e recurrent swelling (angioedema)?: No Examination Category Sub-Category Detail Notes Category Not es General examination HEENT: conjunctiva are clear bilaterally, no tenderness to palpation of the sinuses, TM's without evidence of acute infection, turbinates 2+ swollen and pale inferiorly bilaterally, clear rhinorrhea is present, no polyps noted, no septal perforation, posterior oropharynx is clear, no exudates, no tongue swelling, and uvula is midline Neck, thyroid : supple, non-tender, no anterior cervical lymphadenopathy Heart: RRR, S1-S2, no murmu rs, no rubs, no gallops Lungs: clear to auscultatio n and percussion in all lung yu, no wheezes or crackles Extremities: normal ROM, no clubb ing, no cyanosis, no edema General appearance: pleasant, well-devel oped, well-nourished Skin: normal, no rash, klaudia matographism, urticaria, angioedema Neurologic exam: unremarkable Oral cavity: normal, no lesions Breasts : not performed Peripheral pulses: normal (2+) bilatera lly Back: normal Genitalia: not performed
--- OUTSIDE RECORDS SUMMARY | 2024-04-06 12:30 | XMS_ITS ---
Author Organization [facility] [place] ([address]) Address [address] [place] [address] Care Team Providers Care Instructor Private Name Role Phone Elizabeth Burns Primary Care Provider Za Brewster Unavailable [phone] REASON FOR VISIT Asthma follow-up Encounters Encounter Location Date Provider Diagnosis [facility] [address] [place] [address] 04/06/2024 Za Farley Plan Of Treatment No Information Progress Notes * Tiara TELLEShDOB:[birth year] (59 yo F)Acc No.[id number]:04/06/2024 Asthma F/U Patient: Ashley LUIS Provider: Dominick Farley MD :1965 A ge:58 Y S ex:Female Date:04/06/2024 Address:[address] [facility] Pcp:Elizabeth Burns Subjective: * Chief Complaints: * 1 . Asthma follow-up. * Medical History: Objective: * Vitals: Assessment: Plan: * Treatment: * Billing Information: * Visit Code: * Procedure Codes: * Electronic signature of Krystyna Farley MD on 07/07/2025 at 09:29 AM CDT Sign off status: Pending * Provider: Dominick Farley MD Date: 0 04/06/2024 Generated for Venancio ruby/Shlomo/Rajanismitting on: 0 07/07/2025 09:29 AM CDT
--- OUTSIDE RECORDS SUMMARY | 2024-04-16 16:30 | XMS_ITS ---
Author Organization [facility] [place] ([address]) Address [address] [place] [address] Care Team Providers Care Loan Collector Name Role Phone Elizabeth Burns Primary Care Provider Unavaila araceli CabamZa Unavailable [phone] ZZ-Migration, Provider Unavailable Unavailab le Allergies Allergen (clinical drug ingredient) Drug/Non Drug Allergy documented on EMR Reaction Allergy Type Onset Date Status Steroids STEROIDS (uncoded) facial flushi ng and swelling Allergy Active aspirin Aspirin lip swelling Drug Allergy Acti ve oxycodone oxyCODONE migraines Drug Allergy Active REASON FOR VISIT [facility] To [facility] Conversion Encounter Medications Medication SIG (Take, Route, Frequency, Duration) Notes Start Date End Date Status Omeprazole 40 MG 1 cap(s) orally once a day Active Meloxicam 15 MG 1 tab(s) orally once a day Active Levocetirizine Dihydrochloride 5 MG 1 tab(s) orally once a day (in the evening); Duration: 30 days Active oxyBUTYnin Chloride 5 MG 1 tab(s) orally 3 times a day Active PROAIR HFA 90 MCG/INH 2 PUFF(S) INHALED EVERY 6 HOURS *Please review for potential replacement for e-prescription and drug interaction check* Active Loratadine 10 MG 1 tab(s) orally once a day Active MILNACIPRAN 25 MG 1 TAB(S) ORALLY 2 TIMES A DAY *Please review for potential replacement for e-prescription and drug interaction check* Active Azelastine HCl 137 MCG/SPRAY 2 spray(s) intranasally 2 times a day; Duration: 30 days Active Arnuity Ellipta 100 MCG/ACT 1 puff(s) inhaled every 24 hours; Duration: 30 days Active metFORMIN HCl 500 MG 1 tab(s) orally 2 times a day Active Atorvastatin Calcium 20 MG 1 tab(s) orally once a day Active SUMAtriptan Succinate 50 MG 1 tab(s) orally once Active lamoTRIgine 25 MG 1 tab(s) orally 2 times a day Active Levothyroxine Sodium 137 MCG 1 tab(s) orally once a day Active Encounters Encounter Location Date Provider Diagnosis [address] [address] 04/16/2024 Provider Brian Allergic rhinitis due to pollen J30.1 and Cough, unspecified R05.9 Assessments Encounter Date Diagnosis (ICD Code) Assessment Notes Treatment Notes Treatment Clinical Notes Section Notes 04/16/2024 Allergic rhinitis due to pollen (ICD-10 - J30.1) 04/16/2024 Cough, unspecified (ICD-10 - R05.9) Plan Of Treatment Medication Medication Name Sig Start Date Stop Date Notes Levocetirizine Dihydrochlori de 5 MG 1 tab(s) orally once a day (in the evening); Duration: 30 days Azelastine HCl 137 MCG/SPRAY 2 spray(s) intranasally 2 times a day; Duration: 30 days Arnuity Ellipta 100 MCG/ACT 1 puff(s) in haled every 24 hours; Duration: 30 days Progress Notes * Tiara TELLEShDOB:[birth year] (59 yo F)Acc No.[id number]:04/16/2024 Patient: Ashley LUIS Provider: Janessa Tipton :1965 A ge:58 Y S ex:Female Date:04/16/2024 Address:[address] [place] [address], [id number] Pcp:Elizabeth Burns Subjective: * Chief Complaints: * 1 . Multum To Medispan Conversion Encounter. * Medical History: * Medications: T aking PROAIR HFA 90 MCG/INH AEROSOL 2 PUFF(S) INHALED EVERY 6 HOURS , Notes to Pharmacist: *Please review for potential replacement for e-prescription and drug interaction check*, Taking oxyBUTYnin Chloride 5 MG Tablet 1 tab(s) orally 3 times a day , Taking Meloxicam 15 MG Tablet 1 tab(s) orally once a day , Taking Omeprazole 40 MG Capsule Delayed Release 1 cap(s) orally once a day , Taking SUMAtriptan Succinate 50 MG Tablet 1 tab(s) orally once , Taking Atorvastatin Calcium 20 MG Tablet 1 tab(s) orally once a day , Taking Levothyroxine Sodium 137 MCG Tablet 1 tab(s) orally once a day , Taking lamoTRIgine 25 MG Tablet 1 tab(s) orally 2 times a day , Taking MILNACIPRAN 25 MG TABLET 1 TAB(S) ORALLY 2 TIMES A DAY , Notes to Pharmacist: *Please review for potential replacement for e-prescription and drug interaction check*, Taking Loratadine 10 MG Tablet 1 tab(s) orally once a day , Taking metFORMIN HCl 500 MG Tablet 1 tab(s) orally 2 times a day * Allergies: A spirin: lip swelling, oxyCODONE: migraines, STEROIDS: facial flushing and swelling. Objective: * Vitals: Assessment: * Assessment: 1. C ough, unspecified - R05.9 (Primary) 2 . A llergic rhinitis due to pollen - J30.1 Plan: * Treatment: 2. A llergic rhinitis due to pollen Start Azelastine HCl Solution, 137 MCG/SPRAY, 2 spray(s), intranasally, 2 times a day, 30 days, 1, Refills 1; S tart Levocetirizine Dihydrochloride Tablet, 5 MG, 1 tab(s), orally, once a day (in the evening), 30 days, 30, Refills 1. * Billing Information: * Visit Code: * Procedure Codes: * Electronic signature of Lilliam JHAVERI-Migration on 07/07/2025 at 09:29 AM CDT Sign off status: Pending * Provider: Janessa rapp Migration Date: 04/16/2024 Generated for Venancio ruby/Shlomo/Adelita on: 07/07/2025 09:29 AM CDT
--- OUTSIDE RECORDS SUMMARY | 2024-04-27 12:30 | XMS_ITS ---
Author Organization [facility] [place] ([address]) Address [address] [place] [address] Care Team Providers Care Technical Applications Specialist Name Role Phone Elizabeth Burns Primary Care Provider Za Brewster Unavailable [phone] REASON FOR VISIT Asthma follow-up Encounters Encounter Location Date Provider Diagnosis [facility] [address] [place] [address] 04/27/2024 Za Farley Plan Of Treatment No Information Progress Notes * Tiara TELLEShDOB:[birth year] (59 yo F)Acc No.[id number]:04/27/2024 Asthma F/U Patient: Ashley LUIS Provider: Dominick Farley MD :1965 A ge:58 Y S ex:Female Date:04/27/2024 Address[address] [facility] Pcp:Elizabeth Burns Subjective: * Chief Complaints: * 1 . Asthma follow-up. * Medical History: Objective: * Vitals: Assessment: Plan: * Treatment: * Billing Information: * Visit Code: * Procedure Codes: * Electronic signature of Krystyna Farley MD on 07/07/2025 at 09:29 AM CDT Sign off status: Pending * Provider: Dominick Farley MD Date: 0 04/27/2024 Generated for Venancio ruby/Shlomo/Rajanismitting on: 0 07/07/2025 09:29 AM CDT
--- NOTE | ~2025-07-07 | XR_ITS ---
EXAMINATION: XR lumbar spine 2-3V DATE: 07/07/2025 09:37 INDICATION: Arthrodesis status TECHNIQUE: 3 images of the lumbar spine were obtained. COMPARISON: 06/06/2025 FINDINGS: There is bowel gas and stool projecting over the pelvis which limits evaluation. There are a few less than 1.0 cm calcifications projecting over the pelvis which may represent phleboliths, however, a distal ureteral stone or bladder stone or possible. Posterior spinal fusion of L4 on L5 with transpedicular screws and vertical rods. No radiographic evidence for loosening of the hardware. Interbody fusion device at the L4-5 level. Grade 1 anterolisthesis of L4 on L5. No compression fracture in the lumbar spine. Moderate intervertebral disc space narrowing at L5-S1 level. IMPRESSION: 1. Posterior spinal fusion of L4 and L5 without radiographic evidence for loosening of the hardware. 2. Grade 1 anterolisthesis of L4 on L5. 3. No compression fracture in the lumbar spine. 4. Moderate intervertebral disc space narrowing at the L5-S1 level. If symptoms persist or worsen, consider an MRI of the lumbar spine for further assessment. Reviewed, dictated and finalized at location Q. IMPRESSION: 1. Posterior spinal fusion of L4 and L5 without radiographic evidence for loose amrik of the hardware. 2. Grade 1 anterolisthesis of L4 on L5. 3. No compression fracture in the lumbar spine. 4. Moderate intervertebral disc space narrowing at the L5-S1 level. If symptoms persist or worsen, consider an MRI of the lumbar spine for further assessment.
--- OUTSIDE RECORDS SUMMARY | 2025-07-07 09:29 | XMS_ITS | Patient Health Record ---
Author Organization [facility] ([address]) Address [address] [place] [address] Care Team Providers Care Fuel House Attendant Name Role Phone Elizabeth [place] Primary Care Provider Za Brewster Unavailable [phone] Allergies Allergen (clinical drug ingredient) Drug/Non Drug [...] Status Risk Notes Problem Chronic allergic conjunctivitis (54058908) Other chronic allergic conjunctivitis (H10.45) Active confirmed Problem Allergic rhinitis caused by pollen (disorder) (23669022) Allergic rhinitis due to pollen (J30.1) Active confirmed Problem Allergic rhinitis (63453293) Other allergic rhinitis (J30.89) Active confirmed Problem Chronic rhinitis (32417000) Chronic rhinitis (J31.0) Active confirmed Problem Allergic rhinitis caused by animal hair and dander (858034063993419) Allergic rhinitis due to animal (cat) (dog) hair and dander (J30.81) Active confirmed Plan Of Treatment No Information Insurance Providers Payer Name Payer Address Payer Phone Subscriber Number Group Number Insured Name Patient Relationship to Insured Coverage Start Date Coverage End Date [place] [address] [place] [address] [id number] Ashley Tidwell Self - patient is the insured Medical (General) History Medical History History ICD Code Fibromyalgia Anxiety Hyperthyroidism Neuropathy Surgical History Surgery Date(Month/Year) Endoscopy
--- OUTSIDE RECORDS SUMMARY | 2025-07-07 09:30 | XMS_ITS | Patient Health Record ---
Author Organization [facility] Address [address] [place] [address] Care Team Providers Care Assistant Hall Director Name Role Phone Elbert Ryan Primary Care Provider SHIVANI [place] JR Unavailable Allergies Allergen (clinical drug ingredient) Drug/Non Drug Allergy documented on EMR Reaction Allergy Type Onset Date Status celecoxib CeleBREX Unknown Drug Allergy Active Cyclobenzaprine HCl Unknown Drug Allergy Active gabapentin [...] Orally Once a day Active Vitamin D3 2427293 UNIT/GM as directed Active Vitamin C 500 [...] W/U Status Risk Notes Problem Solitary sacroiliitis (578058892) Sacroiliitis, not elsewhere classified (M46.1) Active confirmed Problem Lumbosacral spondylosis without myelopathy (57411698) Spondylosis without myelopathy or radiculopathy, lumbar region (M47.816) Active confirmed Problem Cervical spondylosis without myelopathy (553539728) Other spondylosis, cervical region (M47.892) Active confirmed Problem Lumbar radiculopathy (827204963) Radiculopathy, lumbar region (M54.16) Active confirmed Problem Enthesopathy of hip region (36589822) Trochanteric bursitis, unspecified hip (M70.60) Active confirmed Problem 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 (696465530) 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) Active confirmed Plan Of Treatment No Information Insurance Providers Payer Name Payer Address Payer Phone Subscriber Number Group Number Insured Name Patient Relationship to Insured Coverage Start Date Coverage End Date PEEWEE Mcclain [address] [place] [address] [id number] YawBeatrizAshley Self - patient is the insured 2021 Medical (General) History Medical History History ICD Code Arthritis diabetes high cholesterol migraine headaches thyroid problems Surgical History Surgery Date(Month/Year) section hysterectomy 1996 laparoscopy right knee 2015 right knee feathered acl 2015 Hospitalization History Reason Date(Month/Year) none recent
== END 2025-07-07 09:24 | disposition home or self-care (01) ==
PROVIDERS: PCP Registered Nurse; Visit Provider Nurse Practitioner Adult Health
DX: Z98.1 Arthrodesis status (principal)
CPT/HCPCS: 72100